=== PATIENT | male | born 1940 | race Caucasian/White ===

== ENCOUNTER → 2016-05-08 | Outpatient (CLI) | payer MEDICARE, BC ==
[~2016-05-08] MED LIST: AMARYL4 MG PO; CALCIUM 600 +1 EAC6 PO; CEFAZOLIN2 GM/1001 IV; DESYREL50 MG PO; DURICEF (NON-500 MG PO; ECOTRIN325 MG PO; FEOSOL325 MG PO; FISH OIL 1,0001 EAC3 PO; FLOMAX0.4 MG PO; FLORASTOR250 MG PO; GENTAMICIN IV; K-TAB 10MEQ10 MEQ PO; LASIX40 MG PO; LEVOTHROID (SY25 MCG PO; LIPITOR40 MG PO; MAG-OX-400(241400 MG PO; NORVASC5 MG PO; PANTOPRAZOLE SO40 MG PO; PRILOSEC20 MG PO; PRINIVIL (ZESTR20 MG PO; RESTORIL15 MG PO; RIFADIN, RIMAC300 MG PO; TRADJENTA5 MG PO; TRESIBA FL100 UNIT/1 SUB-Q; TRICOR145 MG PO; TYLENOL EXTRA500 MG PO; XARELTO15 MG PO; ZYLOPRIM300 MG PO
== END | disposition disaster alternative care site (69) ==
LOC: GNUT 12:47
DX: E11.22 Type 2 diabetes mellitus with diabetic chronic kidney disease (principal); N18.4 Chronic kidney disease, stage 4 (severe)

== ENCOUNTER 2016-06-22 16:00 | Inpatient (IN) | payer MEDICARE, BC ==
[~2016-06-22] VITALS: Ht 170.2 cm; Wt 92.8 kg
--- NOTE | ~2016-06-22 | CON ---
PATIENT'S NAME: SHIRA MCGOWAN [facility] AGE: 76 Y [address] ROOM: [place] [address] LOCATION: GICU ADMIT DATE: 06/22/2016 Consultation DISCHARGE DATE: FAMILY PHYSICIAN: PHYSICIAN, UNKNOWN ATTENDING PHYSICIAN: ESSIE OCHOA REFERRING PHYSICIAN: CECELIA MORRISON MD A consult for Dr. Ochoa, hospitalist. HISTORY OF PRESENT ILLNESS: This is a pleasant, 76-year-old gentleman referred for rehab eval, was admitted on 06/23 with feeling weak and fell while he was out camping with his grandson. He felt weak and fell. Past history of significance, history of the followin. Atrial fibrillation. 2. Coronary heart disease. 3. Status post CABG x4 vessels. 4. Sick sinus syndrome, status post pacemaker and on oral anticoagulants. 5. Diabetes, insulin dependent. 6. Status post aortic bovine valve replacement. He was noted also to be dragging his right leg. CT scan at outside hospital of the brain was negative for gross abnormalities. Denied shortness of breath. No chest pain. No edema. No chest discomfort. No UTIs and/or burning, and no increased frequency. Denied any edema of the leg. No trauma. ALLERGIES: NONE REPORTED. PHYSICAL EXAMINATION: GENERAL: Now he is alert, seems to be oriented x3. Follows instructions well. He is, at the present time, with high temperature and on oxygen per mask. VITAL SIGNS: Blood pressure is 94/76, temperature 103, pulse 60, and respiration rate 30. He is 5 feet 7 inches and weighs 92.7 kg. NEUROLOGIC: At this time, he is not in acute distress. He can comprehend and is able to express; however, with the mask, he is avoiding that. Can move all 4. Muscle strength 4- to 4 throughout. PATIENT'S NAME: SHIRA MCGOWAN [facility] AGE: 76 Y [address] ROOM: [place] [address] LOCATION: [facility] ADMIT DATE: 06/22/2016 Consultation DISCHARGE DATE: FAMILY PHYSICIAN: PHYSICIAN, UNKNOWN ATTENDING PHYSICIAN: ESSIE OCHOA Deep tendon reflexes 1+ throughout. He has good bowel control and has a Mar catheter. MEDICATIONS: He is on the following medications: 1. Insulin aspartate. 2. Glucagon. 3. Dextrose. 4. Glucose. 5. Tylenol. 6. NaCl 0.9%. 7. Mag-Ox. 8. Ferrous sulfate. 9. Allopurinol. 10. [place]-3. 11. Insulin detemir. 12. Protonix. 13. TriCor. 14. D3 vitamin. 15. Lipitor. 16. Flomax. 17. Rocephin. 18. Dopamine hydrochloride. 19. Lasix. 20. Lactated Ringer. 21. Seroquel. ASSESSMENT AND PLAN: At this time, we will start him on bedside PT and OT, and we will follow on him. When stable, we will be happy to reevaluate for rehab admission if he can tolerate it. At the present time, we are full. We will follow alongside with you. All the above was explained to him and his . She verbalized understanding and agreement. MD JACKLYN MCMAHON/modl /[id number] d: 06/23/16 1317 t: 06/24/16 0850, CONSULTATION REPORT
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
--- NOTE | ~2016-06-22 | CON ---
PATIENT'S NAME: SHIRA MCGOWAN [facility] AGE: 76 Y [address] ROOM: [place] [id number] LOCATION: GPCU ADMIT DATE: 06/22/2016 Consultation DISCHARGE DATE: FAMILY PHYSICIAN: Dave Ramos MD ATTENDING PHYSICIAN: ESSIE OCHOA DATE OF CONSULTATION: 06/28/2016 REFERRING PHYSICIAN: CECELIA MORRISON MD REQUESTING PHYSICIAN: Essie Ochoa M.D. REASON FOR CONSULTATION: Staphylococcus aureus bacteremia. SUBJECTIVE: Shira is a pleasant 76-year-old male, whom I was asked to see today in consultation by Dr. Essie Ochoa for further evaluation and recommendations for Staphylococcus aureus bacteremia. Shira was admitted on 06/22/2016 with acute onset of confusion and weakness. He was noted to be "not acting right" suddenly and was dragging his right leg. The initial CT was negative. He has a history of aortic valve replacement. Blood cultures were positive for Staphylococcus aureus, as noted below. He has been on oxacillin. PAST MEDICAL HISTORY: Previous valve replacement (the H&P states aortic, but the ECHO notes an MVR); insulin-dependent type 2 diabetes; dyslipidemia; hypertension; coronary artery disease; chronic kidney disease; atrial fibrillation, on anticoagulation; sick sinus syndrome - status post pacemaker; and chronic respiratory failure. CURRENT MEDICATIONS: See the MAR for complete listing. Antibiotics are as noted above. ALLERGIES: NONE NOTED. SOCIAL HISTORY: He has a distant history of smoking, but stopped in 1979. There is no history of alcohol or tobacco abuse. He is retired. FAMILY HISTORY: Significant for diabetes in his parents. REVIEW OF SYSTEMS: A complete review of systems was carried out and was remarkable as noted PATIENT'S NAME: SHIRA MCGOWAN [facility] AGE: 76 Y [address] ROOM: [address] [address] LOCATION: GPCU ADMIT DATE: 06/22/2016 Consultation DISCHARGE DATE: FAMILY PHYSICIAN: Dave Ramos MD ATTENDING PHYSICIAN: ESSIE OCHOA. OBJECTIVE: GENERAL: He appeared comfortable and was in no distress. He appeared alert and oriented. VITAL SIGNS: Temperature was 37.4, blood pressure 132/60, and pulse is 60. HEENT: Posterior pharynx clear. No adenopathy or thyromegaly. Cranial nerves are intact. NECK: Supple. CHEST: Clear to auscultation. CARDIOVASCULAR: Regular rhythm without S3 or S4. There is a 2/6 mid systolic murmur at the left upper sternal border without radiation. There is no jugular venous distention. ABDOMEN: Soft and nontender without hepatosplenomegaly or masses. EXTREMITIES: Unremarkable without synovitis or rashes. NEUROLOGIC: Strength somewhat globally diminished, no focal findings. PSYCHIATRIC: Behavior and affect appropriate. LABORATORY DATA: Creatinine 1.9. White count 9.5. Microbiology: Blood cultures x1 on 06/22/2016, positive for Staphylococcus aureus (resistant to penicillin). Blood cultures on 06/23/2016, positive 1/2 sets for Staphylococcus aureus. Urine culture on 06/23/2016, shows no growth. Blood cultures x2 on 06/26/2016, showed no growth to date. Clostridium difficile toxin assay on 06/27/2016 is negative. RADIOLOGY: Chest x-ray on 06/27/2016, shows pacemaker present and cardiac enlargement with mild vascular congestion. CT of the chest, abdomen, and pelvis on 06/23/2016 shows stranding in the fat next to both kidneys, cardiac enlargement, but no other acute findings. Echocardiogram on 06/23/2016 shows aortic stenosis and bioprosthetic mitral valve with no leaks. IMPRESSION: Staphylococcus aureus bacteremia with a presumed embolic stroke. Despite the negative transthoracic echo, I feel it is highly likely that he has prosthetic valve endocarditis and would treat accordingly. There are no obvious sources for infection. I note that he has chronic renal insufficiency and is on Coumadin, which will cause some issues with necessary antibiotics, but I feel we should be as aggressive as we can given the significant risk of relapse. Other diagnoses are stable, as noted above. His creatinine appears to have returned to its baseline of about 1.8 to 1.9. PATIENT'S NAME: SHIRA MCGOWAN [facility] AGE: 76 Y [address] ROOM: [id number] [place], [place] [address] LOCATION: GPCU ADMIT DATE: 06/22/2016 Consultation DISCHARGE DATE: FAMILY PHYSICIAN: Dave Ramos MD ATTENDING PHYSICIAN: ESSIE OCHOA PLAN: I would plan on 6 weeks of IV antibiotics. He will need a PICC line for this, which can be ordered at this time. I have ordered cefazolin 2 grams every 12 hours for 6 weeks, rifampin 300 mg 3 times daily for 6 weeks, and gentamicin 1 mg/kg daily for 2 weeks if possible. If he does develop an increasing creatinine, we may have to stop the gentamicin early. If there are any more positive blood cultures, I would strongly recommend consideration of a transesophageal echocardiogram, although I do not think it would change treatment at this point. He does not appear to be a good surgical candidate. We will be glad to see him in followup in the clinic in 2 weeks. Please call with any questions at . CARMEN BOBO MD JSS/modl /[id number] CC: Essie Ochoa MD d: 06/28/16 1817 t: 06/29/16 0754, CONSULTATION REPORT
--- NOTE | ~2016-06-22 | ECHO ---
Transthoracic Echocardiography Report (TTE) Demographics Patient Name SHIRA MCGOWAN Date of Study 06/23/2016 Patient Number [id number] Visit Number [id number] Date of 1940 Room Number G6[address] Gender Male Number Age 76 year(s) Referring Gabriela Mercer Metal Molder Davy Denson RVT Physician Physician Interpreting Elyse Daniels Account Executive Key Accounts Physician Supervising Ordering Gabriela Mercer MD/MLP Physician Nurse Stress Mushroom Cultivator Conclusions Contractility Score Summary At rest the following contractility abnormalities were noted: Hypokinesis of the Mid infero-septal, the Apical septal and the Basal infero-septal segments. Contractility of all other segments appeared normal. Summary Technically difficult exam. The estimated left ventricular ejection fraction is 55-60% with normal internal dimension and WM. Moderate concentric left ventricular hypertrophy. Mildly reduced right ventricular function. The right atrium is mildly dilated. Increased RA pressures. The bioprosthetic mitral valve functions normally with no perivalvular leak. Mean gradient is 3 mmHg. There is moderate aortic stenosis by the Continuity Equation. The peak velocity is 2.99 m/s, the mean gradient is 18 mmHg, and the valve area based on the continuity equation is 1.35 cm2, stroke volume index is 30 ml/m2. This could be low flow low gradient valvular . Mild tricuspid regurgitation by color Doppler. Trivial pulmonic valve regurgitation by color Doppler. Procedure Type of Study TTE procedure:2D Echocardiogram. Procedure Date Date: 06/23/2016 Start: 09:09 AM Study Location: Inpatient Portable Technical Quality: Poor visualization due to patient on ventilator. Indications:CVA. Additional Indications:New cardiomegaly Appropriate Use Criteria: 9 Patient Status: STAT HR: 60 bpm BP: 141/63 mmHg M-Mode/2D Measurements LV Diastolic Dimension: 4.51 cm LV Systolic Dimension: 2.75 cm LV Septum Diastolic: 1.91 cm LV PW Diastolic: 1.53 cm AO Root Dimension: 2.4 cm Cardiac Output: 3.66 l/min AV Cusp Separation: 0.8 cm RV Diastolic Dimension: 2.94 cm LVOT: 2.1 cm LVOT VTI: 17.6 cm RV Base: 3.35 cm LV Stroke volume: 60.93 ml RV Length: 6.81 cm TAPSE: 1.29 cm TDI-S': 15.8 cm/s Doppler Measurements AV Peak Velocity: 2.99 m/s AV Peak Gradient: 35.76 mmHg MV Mean Gradient: 3 mmHg LVOT Peak Velocity: 1.39 m/s PV Peak Gradient: 9.61 mmHg TR Velocity:1.84 m/s Estimated PASP: 33.54 mmHg TR Gradient:13.54 mmHg Estimated RAP:20 mmHg Estimated RVSP: 34 mmHg E' Septal Velocity: 0.04 m/s E' Lateral Velocity: 0.05 m/s Findings Left Ventricle Moderate concentric left ventricular hypertrophy with normal internal dimension,EF and WM. Right Ventricle Mildly reduced right ventricular function. Left Atrium LA is mildly dilated. Right Atrium The right atrium is mildly dilated. IVC measures 2.69 cm with no inspiratory collapse. Mitral Valve The bioprosthetic mitral valve functions normally with no perivalvular leak. Mean gradient is 3 mmHg. Aortic Valve There is moderate aortic stenosis by the Continuity Equation. The peak velocity is 2.99 m/s, the mean gradient is 18 mmHg, and the valve area based on the continuity equation is 1.35 cm2, stroke volume index is 30 ml/m2. Tricuspid Valve Mild tricuspid regurgitation by color Doppler. Pulmonic Valve Trivial pulmonic valve regurgitation by color Doppler. Pericardial Effusion No evidence of pericardial effusion. Miscellaneous Visualized portions of the aortic root and ascending aorta appear normal in size. Pleural Effusion No evidence of pleural effusion. Contractility Score LV regional wall motion:(0-Non visualized 1-Normal 2-Hypokinesis 3-Akinesis 4-Dyskinesis 5-Aneurysm) Signature dtt: Frances Pappas dtd: 06/23/16 0909 Physician Self Edit
--- NOTE | ~2016-06-22 | DS ---
PATIENT'S NAME: ROSLYN SHIRA [facility] AGE: 76 Y [address] ROOM: [address] [address] LOCATION: GPCU ADMIT DATE: 06/22/2016 Discharge Summary DISCHARGE DATE: 07/04/2016 FAMILY PHYSICIAN: Dave Ramos MD ATTENDING PHYSICIAN: Alexandra Ochoa PRIMARY DIAGNOSES: 1. Methicillin-sensitive staphylococcus aureus bacteremia. 2. Prosthetic valve endocarditis. 3. Acute encephalopathy secondary to infection. 4. Acute kidney injury. 5. Chronic kidney disease, stage 3. 6. Chronic atrial fibrillation. 7. Diabetes mellitus type 2, insulin dependent. 8. Coronary artery disease. 9. Pulmonary nodule, six-month CT followup recommended. 10. Obstructive sleep apnea. 11. Essential hypertension. 12. Sick sinus syndrome, status post permanent pacemaker implant. OPERATIONS AND PROCEDURES: Echocardiogram was obtained on 06/23/2016 demonstrating an ejection fraction of 55 to 60%, moderate aortic stenosis. CT scan of the chest, abdomen, and pelvis was obtained on 06/23/2016 demonstrating cardiac enlargement, cholelithiasis, and a small noncalcified nodule in the right middle lobe, too small for definite characterization, six- month CT followup recommended. Abdominal ultrasound obtained on 06/23/2016 demonstrated no renal collecting system abnormalities. HISTORY OF PRESENTING ILLNESS/REASON FOR ADMISSION: Please refer to the H and P dictated on 06/22/[address] Ochoa. HOSPITAL COURSE: The patient was admitted to hospital as noted above with a presumptive diagnosis of acute encephalopathy and presumed stroke, and it became evident that he was encephalopathic from infectious causes versus toxic metabolic etiologies. There was no clinical evidence for stroke. Blood cultures obtained in an outside facility did show MSSA. He was treated with broad-spectrum antibiotic therapy and Infectious Disease was consulted. He had initially been treated with meropenem, linezolid, and ceftriaxone. This was switched to oxacillin, but then subsequently recommended to be changed to a three-drug regimen including IV cefazolin, gentamicin, and rifampin for a total of six weeks. His clinical condition improved relatively quickly. Renal function was significantly impaired at the point of hospitalization but also improved with PATIENT'S NAME: ROSLYN [facility] AGE: 76 Y [address] ROOM: [address] [address] LOCATION: GPCU ADMIT DATE: 06/22/2016 Discharge Summary DISCHARGE DATE: 07/04/2016 FAMILY PHYSICIAN: Dave Ramos MD ATTENDING PHYSICIAN: Alexandra Ochoa careful IV fluid hydration therapy and medication adjustment. His blood sugars were monitored and managed with sliding scale insulin while he was inpatient and remained well controlled. His clinical condition continued to improve and by the end of the 12th day of his hospital stay, he was felt to be stable enough for discharge home with plans for long-term intravenous antibiotic therapy on an outpatient basis as well as outpatient followup with primary care provider Dr. Ramos and an outpatient followup with Infectious Disease. DISCHARGE INSTRUCTIONS: DIET: Regular as tolerated. ACTIVITY: As tolerated. MEDICATIONS: 1. Cefazolin 2 g IV b.i.d. through 08/06/2016. 2. Gentamicin 80 mg IV q.24 hours through 08/06/2016. 3. Allopurinol 300 mg p.o. daily. 4. Atorvastatin 40 mg p.o. daily. 5. Tricor 145 p.o. daily. 6. Iron 325 mg p.o. daily. 7. Lasix 40 mg p.o. daily. 8. Tresiba insulin 16 units subcu q.h.s. 9. Lisinopril 20 mg p.o. daily. 10. Mag oxide 400 mg p.o. daily. 11. Omeprazole 20 mg p.o. b.i.d. 12. Rifampin 300 mg p.o. q.8 hours through 08/09/2016. 13. Xarelto 15 mg p.o. daily. 14. Florastor 250 mg p.o. b.i.d. 15. Flomax 0.4 mg p.o. daily. 16. Acetaminophen 1000 mg p.o. t.i.d. p.r.n. 17. Calcium with vitamin D 600 mg p.o. daily. 18. Trazodone 50 mg p.o. q.h.s. p.r.n. insomnia. 19. [place]-3 fatty acids 1000 mg p.o. daily. 20. Tradjenta 5 mg p.o. daily. 21. Glimepiride 4 mg p.o. daily. FOLLOWUP: He will follow up with Infectious Disease Clinic in 2 weeks. He will have outpatient followup with Dr. Ramos in 3 to 5 days. CONDITION ON DISCHARGE: Fair. PATIENT'S NAME: SHIRA MCGOWAN [facility] AGE: 76 Y [address] ROOM: [id number] [place] [address] [facility] ADMIT DATE: 06/22/2016 Discharge Summary DISCHARGE DATE: 07/04/2016 FAMILY PHYSICIAN: Dave Ramos MD ATTENDING PHYSICIAN: Alexandra Ochoa TIME SPENT: Total time spent on discharge process 60 minutes. LUIS ALFREDO J MD HUNTER SOLIZ/blanca /[id number] d: 07/05/16 0417 t: 07/06/16 1726, DISCHARGE SUMMARY
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
--- NOTE | ~2016-06-22 | OR ---
PATIENT'S NAME: SHIRA MCGOWAN [facility] AGE: 76 Y [address] ROOM: [place] [address] LOCATION: GPCU ADMIT DATE: 06/22/2016 OR/Procedure Report DISCHARGE DATE: FAMILY PHYSICIAN: Dave Ramos MD ATTENDING PHYSICIAN: ESSIE OCHOA SURGEON: Essie Ochoa MD CORRECTIONAL THERAPY TEACHER: DATE OF PROCEDURE: 06/23/2016 PROCEDURE: Right central vein catheterization. INDICATION: Sepsis, need for IV fluids and vasopressors. DESCRIPTION OF PROCEDURE: Procedure was explained to the patient as well as family. Risks of infection, bleeding, as well as pneumothorax were discussed. Finally, the patient wished to proceed with the procedure. Time-out was taken. Right IJ as well as left IJ were examined using ultrasonography. Right IJ was selected for catheterization. The patient was prepped in a sterile fashion. Anesthetic lidocaine 1% was used to achieve local anesthesia. Using ultrasonography, right IJ was identified and trocar needle was entered into it with aspiration of dark blood oozing out of the needle. Guidewire was advanced. Needle was removed. Confirmation of the guidewire presence in the IJ was confirmed using ultrasonography and images were saved. Dilatation was achieved with a dilator. . Using guidewire, central line was threaded over the guidewire and guidewire was retrieved. The line was secured with sutures and dressed. No immediate complication noted. Chest x-ray had been ordered. MD CHOLO VELIZ/albertol /[id number] d: 06/23/16 2314 t: 07/10/16 1503, OPERATIVE SUMMARY
[2016-06-22] MEDS ORDERED: TYLENOL EXTRA500 MG PO (17:54)
[2016-06-22] MEDS ORDERED: CALCIUM 600 +1 EAC6 PO (17:55)
[2016-06-22] MEDS ORDERED: ZYLOPRIM300 MG PO (18:14)
--- NOTE | 2016-06-22 18:14 | NUR ---
Pt is 76 y/o male admit for acute confusion/poss CVA for hospitalist. Pt alert and oriented to person and place. No allergies. Resides at home with his . Family at bedside. Pt was eating lunch with his grandson and got up from the table and fell. He was confused and unsteady on his feet with slightly slurred,garbled speech. Hx htn,hypercholest,pacemaker,valve repair,CABG, arthritis,gerd,gout,renal insufficiency/disease,urgency/frequency,colon CA with resection,DM.
[2016-06-22] MEDS ORDERED: LIPITOR40 MG PO (18:15)
[2016-06-22] MEDS ORDERED: TRICOR145 MG PO (18:15)
[2016-06-22] MEDS ORDERED: FISH OIL 1,0001 EAC3 PO (18:16)
[2016-06-22] MEDS ORDERED: FEOSOL325 MG PO (18:16)
[2016-06-22] MEDS ORDERED: MAG-OX-400(241400 MG PO (18:17)
[2016-06-22] MEDS ORDERED: LASIX40 MG PO (18:17)
[2016-06-22] MEDS ORDERED: PRILOSEC20 MG PO (18:18)
[2016-06-22] MEDS ORDERED: XARELTO15 MG PO (18:18)
[2016-06-22] MEDS ORDERED: TRADJENTA5 MG PO (18:21)
[2016-06-22] MEDS ORDERED: AMARYL4 MG PO (18:25)
[2016-06-22] MEDS ORDERED: TRESIBA FL100 UNIT/1 SUB-Q (18:26)
[2016-06-23 03:34] LABS: HEMATOCRIT 32.7 % (37.0-53.0); HEMOGLOBIN 10.9 g/dL (11.0-16.0); MCH 30.8 pg (27.0-34.0); MCHC 33.3 gm/dL (32.0-36.5); MCV 92.4 fl (83.0-98.0); MPV 10.6 fl (9.4-12.4); PLATELET COUNT 196 K/uL (150-450); RBC 3.54 M/uL (3.50-5.50); RDW-CV 14.6 % (11.9-14.6)
[2016-06-23 03:37] LABS: WBC 16.3 K/uL (4.0-11.0)
[2016-06-23 03:53] LABS: ANION GAP 16.6 (10.0-19.0); CREATININE 3.3 mg/dL (0.6-1.3); POTASSIUM 3.6 mMol/L (3.7-5.1)
[2016-06-23 05:25] LABS: ABSOLUTE NEUTROPHIL CT (ANC) 15.7 K/uL (1.4-9.0); BANDED NEUTROPHIL # 5.5 K/uL (0.0-0.1); BANDED NEUTROPHILS % 34 %; LYMPHOCYTE # 0.3 K/uL (0.8-4.0); LYMPHOCYTE % 2 %; MONOCYTE # 0.3 K/uL (0.0-1.0); SEGMENTED NEUTROPHIL # 10.1 K/uL (1.4-9.0); SEGMENTED NEUTROPHIL % 62 %
--- NOTE | 2016-06-23 07:02 | NUR ---
Significant Event: Patient A/O x 3. Impulsive at times. Moves all extremities spontaneously and to command with equal strength throughout. Denies N/T. No visual issues. Wears glasses. Has dentures. Bilateral hearing aids. Lungs clear and dim throughout on 2L or CPAP while sleeping this shift. Bowel sounds active. Incontinent at times. Oliguria. No pain this shift. Hypotensive issues, fluid boluses given. PIV to left fa SL. SCDs intact. SS=1 for slight mouth droop. Right eye droopy. Follow up: Chest xray done this shift.
--- NOTE | 2016-06-23 08:38 | NUR ---
CONSULT RECEIVED PER ROUTINE STROKE ORDERS. WILL PROVIDE DIET EDUCATION APPROPRIATE PRIOR TO DISCHARGE.
[2016-06-23 08:51] LABS: PCO2 27 mmHg (35-45); PO2 57 mmHg (80-90)
[2016-06-23 10:09] LABS: BILIRUBIN URINE NEGATIVE (NEGATIVE); BLOOD URINE 250 /UL (NEGATIVE); COLOR URINE YELLOW (YELLOW); GLUCOSE URINE NEGATIVE (NEGATIVE); KETONE URINE 5 mg/dL (NEGATIVE); LEUKOCYTES URINE 25 /UL (NEGATIVE); NITRITE URINE NEGATIVE (NEGATIVE); PROTEIN URINE 30 mg/dL (NEGATIVE); SPEC GRAVITY URINE 1.015 (1.003-1.035); TURBIDITY URINE CLEAR (CLEAR); UROBILINOGEN URINE 1 mg/dL (NORMAL)
[2016-06-23 10:18] LABS: AMORPHOUS URINE 1+ (NEGATIVE); BACTERIA URINE RARE (NEGATIVE); RBC URINE 20-50 #/HPF (NEGATIVE); WBC URINE 0-2 #/HPF (NEGATIVE)
[2016-06-23 10:23] LABS: INR - (THERAPEUTIC) 1.24 (0.92-1.07)
--- NOTE | 2016-06-23 11:16 | NUR ---
Significant Event: PT restless, confused, garbled words at times. Labored breathing, O2 increased to 5L and then CPAP applied. BP in the 200 then down to 140 SBP. Temp 103.1. MD notified of temp, labored breathing and increased O2 demands. IV patent to L)wrist. Lasix 40mg IV given x1. Rocephin 1 GM IV given x1. Fluid bolus NS 500ml given x1. Mar placed. MD came to see PT and initiated sepsis orders and ordered to transfer to ICU. PT transfered at 1015. Follow up:
--- NOTE | 2016-06-23 13:54 | NUR ---
Patient transferred to ICU this morning. Reviewed chart. Will continue to follow.
--- NOTE | 2016-06-23 17:08 | NUR ---
Significant Event: Arrived to ICU at 1015. Mild hypotension, disorientation, and need for CPAP on arrival. 2L NS boluses given by 1215. Central line placed. Hemodynamically stable and neurologically intact this afternoon. On 4L O2/NC. Up to chair with 1PA. Family present most of the day. Follow up: continue
--- NOTE | 2016-06-24 05:43 | NUR ---
Significant Event: Pt is alert and oriented x3. Pupils are equal and reactive. Moves all extremities spontaneously and to command. On Cpap at night and 2-4L O2 during the day. Ambulates with a 1 assist. Blood pressures have been stable this shift, Levo was not started. Up to the toilet, 1 BM this shift. Mar cath in place with good urine output. [address], IJ triple lumen in place. Follow up: Possible change of status today.
[2016-06-24 11:42] LABS: HEMATOCRIT 32.4 % (37.0-53.0); HEMOGLOBIN 10.4 g/dL (11.0-16.0); MCH 30.2 pg (27.0-34.0); MCHC 32.1 gm/dL (32.0-36.5); MCV 94.2 fl (83.0-98.0); MPV 11.3 fl (9.4-12.4); RBC 3.44 M/uL (3.50-5.50); WBC 11.6 K/uL (4.0-11.0)
[2016-06-24 11:55] LABS: ALBUMIN 2.4 gm/dL (3.5-5.0); ANION GAP 15.8 (10.0-19.0); CALCIUM 7.9 mg/dL (8.5-10.5); CREATININE 2.9 mg/dL (0.6-1.3); POTASSIUM 3.8 mMol/L (3.7-5.1)
[2016-06-24 11:57] LABS: PLATELET COUNT 140 K/uL (150-450)
[2016-06-24 12:23] LABS: ABSOLUTE NEUTROPHIL CT (ANC) 10.7 K/uL (1.4-9.0); BANDED NEUTROPHIL # 3.7 K/uL (0.0-0.1); BANDED NEUTROPHILS % 32 %; LYMPHOCYTE # 0.3 K/uL (0.8-4.0); LYMPHOCYTE % 3 %; MONOCYTE # 0.6 K/uL (0.0-1.0); SEGMENTED NEUTROPHIL % 60 %
--- NOTE | 2016-06-24 18:04 | NUR ---
Significant Event: CARDIO: SBP 140s-150s. Temp 99.1. RESP: Room air. NEURO: Alert and oriented x 3. ACTIVITY: Ambulated in bills.
--- NOTE | 2016-06-25 05:38 | NUR ---
PT'S NEURO STATUS REMAINS WNL. PACED AT 60 BPM, OCCASIONALLY SLIGHLY HIGHER WITH ACTIVITY. NORMO-HYPERTENSIVE. TMAX 99.4. REMAINS ON RA DURING DAY, DID NOT WANT TO WEAR CPAP DUE TO NO HUMIDITY LAST NIGHT SO PLACED ON 2LNC TO PREVENT DESATURATIONS. ORDER FOR CEPACHOL OBTAINED FOR DRY/SORE THROAT. TOLERATING DIET WELL, BM X1 THIS SHIFT. UOP ADEQUATE (12 HR TOTAL 820 ML). ROSEMARY VIVAS RN
[2016-06-25 05:45] LABS: BASOPHIL % 0.1 %; EOSINOPHIL % 0.1 %; HEMATOCRIT 32.9 % (37.0-53.0); HEMOGLOBIN 10.6 g/dL (11.0-16.0); IMMATURE GRANULOCYTE # 0.1 K/uL (0.0-0.3); IMMATURE GRANULOCYTE % 1.1 %; LYMPHOCYTE # 0.6 K/uL (0.8-4.0); LYMPHOCYTE % 5.5 %; MCH 29.8 pg (27.0-34.0); MCHC 32.2 gm/dL (32.0-36.5); MCV 92.4 fl (83.0-98.0); MONOCYTE # 0.8 K/uL (0.0-1.0); MONOCYTE % 7.5 %; MPV 11.3 fl (9.4-12.4); NEUTROPHIL # (ANC) 8.9 K/uL (1.4-9.0); NEUTROPHIL % 85.7 %; NRBC % 0 /100WBC (0-0.00); PLATELET COUNT 148 K/uL (150-450); RBC 3.56 M/uL (3.50-5.50); RDW-CV 14.9 % (11.9-14.6); WBC 10.4 K/uL (4.0-11.0)
[2016-06-25 06:02] LABS: ALBUMIN 2.4 gm/dL (3.5-5.0); ANION GAP 13.7 (10.0-19.0); CREATININE 2.5 mg/dL (0.6-1.3); PHOSPHORUS 2.2 mg/dL (2.5-4.9); POTASSIUM 3.7 mMol/L (3.7-5.1)
--- NOTE | 2016-06-25 10:07 | NUR ---
PATIENT ALERT, ORIENTED X3. OPENS EYES SPONTANEOUSLY AND TO VOICE. PUPILS EQUAL AND REACTIVE . NO FACIAL ASYMMETRY. SPEECH IS MUMMBLED, APPROPRIATE, DENIES ANY NUMBNESS, TINGLING, OR PAIN. MAKES ALL NEEDS KNOWN. PATIENT MOVES ALL 4 EXTREMITIES SPONTANEOUSLY AND TO COMMANDS, EQUAL STRENGTH THROUGHOUT. AMBULATED IN HALLWAY X2 THIS AM, GAITBELT, WALKER, AND STAND BY ASSISTENCE. COOPERATIVE WITH ALL CARES. PATIETN HAS BEEN IN PACED RHYTHM, HR 60-70S. PULSES PALPABLE THROUGHOUT. AFEBRILE. BP STABLE, SBP 140-150S. MAP>65. NS INFUCING THROUGHOUT L) FOREARM AT 150ML/HR. CURRENTLY RECIEVING ZYVOX AT 150ML/HR. NO COMPLICATIONS WITH IV. PATIENT IS ON ROOM AIR, SATS MID TO UPPER 90S. SOUGH NON PRODUCTIVE. BOWEL SOUNDS PRESENT, 1 SMALL BM TODAY, LOOSE. VOIDS PER URINAL, 100 ML OUTPUT. NO NEW SKIN ISSUES NOTED. SHOWER COMPLETED THIS AM. 2 PIV, NO COMPLICATIONS. BEDSIDE REPORT COMPLETED WITH YANNICK ELKINSU RN. ALL BELONGINGS SENT WITH PATIENT. FAMILY NOTIFIED OF TRANSFER FOLLOW UP: CONTINUE TO MONITOR, ASK IF NECESSARY TO CONTINUE NS AT 150ML/HR?
--- NOTE | 2016-06-25 13:36 | NUR ---
Attempted to visit pt 3 times today. Once in ER and pt stated he just walked to shower. Twice in PCU, pt states lunch is coming initially, then an hour later, lunch was there upon last visit. Will resume PT tomorrow.
--- NOTE | 2016-06-25 19:06 | NUR ---
PT OUT OF ICU THIS AM 1030. AT TIME OF TRANSFER PT IS A/O PINK WARM AND DRY. TALKATIVE. IN ROOM, IV'S TO LT WRIST AND RT HAND FLUSHING AND RUNNING WELL. NS AT 150MLS TO LT WRIST IV. LUNGS ARE CLEAR AND DIMINSHED IN THE BASES. ABDOMEN IS SOFT AND NONTENDER WITH PRESENT BOWEL SOUNDS. PULSES ARE STRONG. HE HAS 1-2 + hand edmea, FEET LOOK PRETTY GOOD AND PT IS GOOD ABOUT TRYING TO KEEP THEM UP. PT DOES GET AUDIBLY WHEEZY WHEN UP IN ROOM TO BR , BBUT RECOVERS QUICKLY. SATS REMAIN UNCHANGED 91-94% ON ROOM AIR EVEN FTER WALKING AND SOUNDING WHEEZY.
--- NOTE | 2016-06-26 05:18 | NUR ---
Significant Event: A/O X 3 COOPERATIVE WITH CARES. AMBULATES 1 ASSIST WITH WALKER. PACED HR AROUND 60, SBP 110 TO 150'S. REFUSED HOSPITAL CPAP SO PUT 2L 02 HS. TO BRING HOME CPAP TODAY. LUNGS WERE VERY COARSE BUT HAVE IMPROVED TO CLEAR/DIMINISHED CRACKLES ON LEFT LOWER LOBE. THEN HE DEVELOPED VERY PROMINENT UPPER AIRWAY EXPIRATORY WHEEZES. DID CHEST X-RAY, D/C'D IV FLUIDS AND GAVE 20 MG IV LASIX AND STARTED DUONEB Q6 HOUR PRN. BLOOD SUGAR THIS AM 60, TREATED IT X 2 WITH LAST READING 94. COUGHING IS STARTING TO BECOME PRODUCTIVE, STARTED CLARITIN AND FLONASE. DENIED PAIN, NO PAIN MEDS GIVEN. RESTED WELL AT TIMES WITH NO COMPLAINTS. Follow up:
[2016-06-26 05:44] LABS: ALBUMIN 2.2 gm/dL (3.5-5.0); ANION GAP 14.4 (10.0-19.0); CALCIUM 7.8 mg/dL (8.5-10.5); CREATININE 2.1 mg/dL (0.6-1.3); PHOSPHORUS 3.4 mg/dL (2.5-4.9); POTASSIUM 3.4 mMol/L (3.7-5.1)
--- NOTE | 2016-06-26 08:18 | NUR ---
CONSULT FOR CVA NOTED BUT BRAIN SCAN NEGATIVE. WILL ASSIST NEEDED.
--- NOTE | 2016-06-26 16:41 | NUR ---
Introduced self and role of care management to patient and . They live in [place]. He states that he is able to do all his own ADL's. His states that she does assist as needed. We discussed his discharge plans. They did ask about the possible need of a walker. I explained that I would leave a script on his chart for the doctor to sign. They plan on hm returning home on discharge. They deny any other needs at this time. Will continue to follow.
--- NOTE | 2016-06-27 04:32 | NUR ---
Significant Event: PATIENT IS A/O X3. VSS. HR 50-60'S IN PACED RHYTHM. AFEBRILE. 02 SATS IN LOW TO MID 90'S STARTED ON 2L 02 PER NC AT NIGHT. NO C/O PAIN. LUNGS WHEEZY AND SLIGHTLY COARSE WITH CRACKLES IN BASES. 02 INITIATED. 20MG IV LASIX GIVEN X1. CXR ORDERED FOR AM. PRN BREATHING TREATMENTS GIVEN. UP WITH 1A WITH WALKER/GB. BOWELS ACTIVE. C/O LOOSE STOOLS. ORDER RECIEVED TO TEST STOOL FOR CDIFF. VOIDS PER URINAL. IV TO RIGHT AND LEFT FOREARMS BOTH SL. ABREVA ORDERED FOR COLD SORE TO LEFT NOSTIRL. ON Q6H ACCUCHECKS. Follow up: CONTINUE TO MONITOR PER PLAN OF CARE.
[2016-06-27 05:03] LABS: BASOPHIL % 0.3 %; EOSINOPHIL # 0.1 K/uL (0.0-0.5); HEMATOCRIT 30.8 % (37.0-53.0); HEMOGLOBIN 9.9 g/dL (11.0-16.0); IMMATURE GRANULOCYTE # 0.1 K/uL (0.0-0.3); IMMATURE GRANULOCYTE % 1.5 %; LYMPHOCYTE # 0.7 K/uL (0.8-4.0); LYMPHOCYTE % 7.6 %; MCH 29.7 pg (27.0-34.0); MCHC 32.1 gm/dL (32.0-36.5); MCV 92.5 fl (83.0-98.0); MONOCYTE # 1.2 K/uL (0.0-1.0); MONOCYTE % 12.8 %; MPV 11.3 fl (9.4-12.4); NEUTROPHIL # (ANC) 7.3 K/uL (1.4-9.0); NEUTROPHIL % 76.8 %; NRBC % 0 /100WBC (0-0.00); PLATELET COUNT 150 K/uL (150-450); RBC 3.33 M/uL (3.50-5.50); WBC 9.6 K/uL (4.0-11.0)
[2016-06-27 05:22] LABS: ALBUMIN 2.2 gm/dL (3.5-5.0); ANION GAP 11.8 (10.0-19.0); CREATININE 1.9 mg/dL (0.6-1.3); PHOSPHORUS 2.2 mg/dL (2.5-4.9); POTASSIUM 3.8 mMol/L (3.7-5.1)
--- NOTE | 2016-06-27 11:31 | NUR ---
A-SCREENED D/T LOS HT: 67 IN. WT: 101.3 KG (STANDING SCALE). BMI: 35.0 LABS REVIEWED; BUN 30 AND COPER HAND 1.9; TRENDING DOWN FROM ADMIT. ALB 2.2 MEDS: LASIX, XARELTO, OXACILLIN, PROTONIX, NOVOLOG (MILD SS) DIET RX: CARDIAC. PO INTAKE 75-100% FOR THE MOST PART. EST NUTR NEEDS: 1805-8280 KCALS (15-20 KCALS/KG) 101-134 GM PROTEIN (1.5-2.0 GM/KG IBW) 1 ML FLUID/KCAL D-NOT AT NUTRITION RISK; NO NUTRITION DX IDENTIFIED I-CONTINUE W/CURRENT DIET RX M/E-WILL ASSIST NEEDED
--- NOTE | 2016-06-27 18:26 | NUR ---
PATIENT UP TO CHAIR AND BR W/ 1 ASSIST. SATS 93% ON RA. C-DIFF TEST NEG. IMMODIUM GIVEN X1. INCREASED LASIX AND RAMIPRIL. ID CONSULTED. CONTINUED ANTIBIOTICS.
--- NOTE | 2016-06-28 04:23 | NUR ---
Significant Event: PATIENT IS A/O X3 BUT FORGETFUL AT TIMES. VSS. HR 60-70'S IN PACED RHYTHM. SBP 130-180'S. AFEBRILE. 02 SATS IN LOW TO MID 90'S ON 2L 02 PER NC AT NIGHT AND RA DURING DAY. LUNGS VARRIED BUT MOSTLY WHEEZES IN UPPER LOBES AND CLEAR/DIM IN BASES. BREATHING TX X1 BUT REFUSED OTHERWISE WHEN ASKED PATIENT. CONTINUES TO HAVE NON-PRODUCTIVE COUGH. UP WITH 1A WITH WALKER/GB. BOWELS ACTIVE. CONTINUES TO HAVE LOOSE STOOLS. VOIDS PER URINAL. IV TO LEFT FOREARM AND RIGHT FOREARM BOTH SL. ON Q6H ACCUCHECKS. GAVE 12.5MG LIQUID BENADRYL X1 AND 50MG TRAZADONE X1 TO HELP SLEEP. Follow up: CONTINUE TO MONITOR PER PLAN OF CARE.
--- NOTE | 2016-06-28 19:16 | NUR ---
Significant Event:Patient had antibiotics changed by KEYONNA oquendo Will get a PICC in the morning at 0900. On room air throughout day. Put on Fluid Restriction of 1500 ml/24 hours. Continue Lasix Follow up:PICC in am
--- NOTE | 2016-06-29 04:32 | NUR ---
Patient A/Ox3 can be forgetful. VSS on RA. Up one assist with walker/gaitbelt. Pain med given x1 for generalized pain. IV bilateral arms saline locked. Lungs clear/diminished. Bowel sounds present, 1 small BM this shift. PICC placement today for prison antibotics. Possible home today. Has several sores on mouth and under nose.
[2016-06-29 05:28] LABS: ALBUMIN 2.1 gm/dL (3.5-5.0); ANION GAP 14.1 (10.0-19.0); CREATININE 1.9 mg/dL (0.6-1.3); PHOSPHORUS 2.6 mg/dL (2.5-4.9); POTASSIUM 3.1 mMol/L (3.7-5.1)
--- NOTE | 2016-06-29 12:33 | NUR ---
Called and spoke with patients Ashley this morning about his superintendent container terminal antibiotic needs. I explained that Naveen had 3 options. He could do home infusion, outpatient infusion in [place] or go to the swingbed in [place]. We both agreed the swingbed would not be an option for Naveen as he would not want to be in the hosptial that long. I did explain that with home infusion would consist of having a home health nurse come out and teach them how to use the infusion equipment and take care of the powerport line. It would then be up to her to do the 3 infusions everyday. The outpatient option would consist of her taking him to the [facility] twice daily for six weeks and the antibiotic would be infused at the hosptial. She wants to speak with Naveen and her son to determine what will be the best choice. She plans on being here on Sunday afternoon. Will touchbase with her on Sunday.
--- NOTE | 2016-06-29 16:17 | NUR ---
Significant Event:Patient had a power line placed for terminal clerk antibiotics. It is in left, has a small ooze. Patient has taken tylenol ES for generalized pain from arthritis. Took 40 mEq KCl PO today. Had one stool- was loose. Follow up:Will probably stay till next Sunday to monitor renal function with antibiotics.
--- NOTE | 2016-06-29 16:20 | NUR ---
D:Patient left for Radiology per bed at 1045. Returned to rom at 1155. Had power line to left chest. Having small of bloody oozing, Ina WAKLER changed dressing and placed some gauze under tegaderm. Has had small amount serosang drainage since dressing change.
[2016-06-30 03:45] LABS: ALBUMIN 2.1 gm/dL (3.5-5.0); ANION GAP 12.3 (10.0-19.0); CALCIUM 8.2 mg/dL (8.5-10.5); CREATININE 1.8 mg/dL (0.6-1.3); PHOSPHORUS 2.5 mg/dL (2.5-4.9); POTASSIUM 3.3 mMol/L (3.7-5.1)
--- NOTE | 2016-06-30 04:20 | NUR ---
Patient A/Ox3. VSS on RA. Up standby assist w/walker. Lungs clear. Bowel sounds present, BM last night. Power [place] to Rt chest saline locked. Tylenol at HS for generalized pain. Will keep over weekend to monitor renal function.
--- NOTE | 2016-06-30 11:00 | NUR ---
Spoke with Whitney at home infusion. She gave me a preliminary cost for home infusion. Cefazolin 2 Gm IV BID $50 per week, Gentamycin $70 per week totaling $115 per week roughly $700 for six weeks. If patients decides on home infusion will use [facility] at home so supply costs are waived. Will touch base with patients when she is here this afternoon.
--- NOTE | 2016-06-30 11:30 | NUR ---
Spoke with Whitney at [facility] home infusion. She gave me a preliminary cost for home infusion. Cefazolin 2 Gm IV BID $50 per week, Gentamycin $70 per week totaling $115 per week roughly $700 for six weeks. If patients decides on home infusion will use [facility] at home so supply costs are waived. Will touch base with patients when she is here this afternoon.
--- NOTE | 2016-06-30 15:23 | NUR ---
Significant event: Alert, oriented x3. HR 60's, afebrile, RR 20-32, RA O2 sats> 90%, BP's 160-170's, 3rd assessment was 148/67. Tylenol given for joint pain. Lungs clear/diminished. Bowel sounds positive. IV dressing changed today. Will be replacing k+. Now have PRN medication order for SBP > 180. Follow Up: Monitoring renal status.
--- NOTE | 2016-06-30 18:12 | NUR ---
I spoke with patients this afternoon. We discussed discharge options again for his IV antibiotics. She states that she and Naveen have discussed it and they would prefer to do outpatient therapy at the [facility]. I explained that I would set that up on the day he is discharge. She verbalized understanding.
[2016-07-01 03:45] LABS: ALBUMIN 2.1 gm/dL (3.5-5.0); ANION GAP 11.1 (10.0-19.0); CALCIUM 8.4 mg/dL (8.5-10.5); CREATININE 1.8 mg/dL (0.6-1.3); PHOSPHORUS 2.3 mg/dL (2.5-4.9); POTASSIUM 3.1 mMol/L (3.7-5.1)
--- NOTE | 2016-07-01 04:26 | NUR ---
Patient A/Ox3. VSS on RA. Stand and pivot to transfer. PT/OT working with him. IV saline locked. Ultram x2 for back and foot pain. Waiting for placement.
--- NOTE | 2016-07-01 16:15 | NUR ---
Significant event: A&Ox3. HR 60, SBP: 174,161,140. Afebrile. RA, lungs clear/diminished. BS present, had BM today. R)subclavian power line patent, good blood return. Dodson ordered for arthritic pain, last given 2 tabs at 1550. Follow Up: Monitoring renal status over the weekend, then plan for either home infusion or placement.
--- NOTE | 2016-07-02 03:50 | NUR ---
Significant Event: PATIENT IS A/O X3 BUT FORGETFUL AT TIMES. VSS. HR 50-60'S. SBP 150-170'S. AFEBRILE. 02 SATS IN MID 90'S ON RA. C/O GENERALIZED JOINT PAIN. 2 TABS NORCO GIVEN X1 WITH SOME RELIEF. LUNGS CLEAR TO CLEAR/DIM WITH WHEEZES NOTED ON LAST ASSESSMENT. PATIENT REFUSED PRN BREATHING TREATMENT. UP WITH 1A WITH WALKER/GB. BOWELS ACTIVE. CONTINUES TO HAVE LOOSE STOOLS. VOIDS PER URINAL. RIGHT CHEST POWER LINE SL. ON ACHS ACCUCHECKS. Follow up: CONTINUE TO MONITOR PER PLAN OF CARE.
[2016-07-02 07:36] LABS: BASOPHIL % 0.3 %; EOSINOPHIL # 0.2 K/uL (0.0-0.5); EOSINOPHIL % 2.2 %; HEMOGLOBIN 10.6 g/dL (11.0-16.0); IMMATURE GRANULOCYTE # 0.1 K/uL (0.0-0.3); IMMATURE GRANULOCYTE % 1.3 %; LYMPHOCYTE % 9.6 %; MCH 29.6 pg (27.0-34.0); MCHC 32.1 gm/dL (32.0-36.5); MCV 92.2 fl (83.0-98.0); MONOCYTE % 10.4 %; MPV 10.2 fl (9.4-12.4); NEUTROPHIL # (ANC) 7.5 K/uL (1.4-9.0); NEUTROPHIL % 76.2 %; NRBC % 0 /100WBC (0-0.00); PLATELET COUNT 333 K/uL (150-450); RBC 3.58 M/uL (3.50-5.50); RDW-CV 15.2 % (11.9-14.6); WBC 9.9 K/uL (4.0-11.0)
[2016-07-02 07:40] LABS: ALBUMIN 2.4 gm/dL (3.5-5.0); ANION GAP 13.6 (10.0-19.0); CALCIUM 8.8 mg/dL (8.5-10.5); CREATININE 1.7 mg/dL (0.6-1.3); PHOSPHORUS 2.1 mg/dL (2.5-4.9); POTASSIUM 3.6 mMol/L (3.7-5.1)
--- NOTE | 2016-07-02 16:22 | NUR ---
Significant event: A&Ox3, forgetful. VSS. RA. Antibiotics continue. 2 tabs norco for pain, given once. Shift uneventful Follow Up: Continue current POC, watch renal status.
[2016-07-03 03:24] LABS: ALBUMIN 2.2 gm/dL (3.5-5.0); ANION GAP 11.3 (10.0-19.0); CALCIUM 8.4 mg/dL (8.5-10.5); CREATININE 1.8 mg/dL (0.6-1.3); POTASSIUM 3.3 mMol/L (3.7-5.1); TOTAL BILIRUBIN 0.8 mg/dL (0.0-1.5); TOTAL PROTEIN 6.6 g/dL (6.0-8.4)
--- NOTE | 2016-07-03 03:33 | NUR ---
Significant Event: PATIENT IS A/O X3 BUT FORGETFUL. VSS. HR 60'S IN PACED RHYTHM WITH UNDERLYING CHRONIC AFLUTTER. SBP 110-170'S. AFEBRILE. 02 SATS IN LOW TO MID 90'S CURRENTLY ON CPAP. RA DURING DAY. C/O CHRONIC/CONSTANT GENERALIZED JOINT PAIN. 2 TABS NORCO GIVEN X1 WITH SOME RELIEF. LUNGS CLEAR/DIM THROUHGOUT. SOB WITH ACTIVITY. UP WITH 1A WITH WALKER/GB. BOWELS ACTIVE. VOIDS PER URINAL. RIGHT CHEST TUNNELED POWER LINE SL. ON ACHS ACCUCHECKS. Follow up: CONTINUE TO MONITOR RENAL FUNCTION AND PER PLAN OF CARE.
[2016-07-03 03:48] LABS: BASOPHIL % 0.4 %; EOSINOPHIL # 0.2 K/uL (0.0-0.5); EOSINOPHIL % 2.8 %; HEMOGLOBIN 9.8 g/dL (11.0-16.0); IMMATURE GRANULOCYTE # 0.1 K/uL (0.0-0.3); IMMATURE GRANULOCYTE % 1.3 %; LYMPHOCYTE # 1.1 K/uL (0.8-4.0); LYMPHOCYTE % 13.3 %; MCH 29.3 pg (27.0-34.0); MCHC 31.6 gm/dL (32.0-36.5); MCV 92.8 fl (83.0-98.0); MONOCYTE % 11.7 %; MPV 10.4 fl (9.4-12.4); NEUTROPHIL # (ANC) 5.9 K/uL (1.4-9.0); NEUTROPHIL % 70.5 %; NRBC % 0 /100WBC (0-0.00); PLATELET COUNT 345 K/uL (150-450); RBC 3.34 M/uL (3.50-5.50); RDW-CV 15.1 % (11.9-14.6); WBC 8.3 K/uL (4.0-11.0)
--- NOTE | 2016-07-03 16:58 | NUR ---
Significant Event: Pt is a/o. Have not noticed forgetfulness to day. uses call light. Bed/chair alarms on for safety. Remains on 1500 ml fluid restrictions. Double lumen power glide R) chest. IV ATB. Voids per urinal. Denies c/o pain. Uses cpap @ hs. Follow up:
--- NOTE | 2016-07-04 04:23 | NUR ---
A/O. HR 60-70s. SBP 130-160s. ROOM AIR. CPAP AT NOC. AFEBRILE. 1A. BMx1. VOIDS PER URINAL. DENIES PAIN. HOME VS SNF.
[2016-07-04 07:25] LABS: ALBUMIN 2.5 gm/dL (3.5-5.0); ANION GAP 12.6 (10.0-19.0); CALCIUM 8.4 mg/dL (8.5-10.5); CREATININE 1.8 mg/dL (0.6-1.3); PHOSPHORUS 2.8 mg/dL (2.5-4.9); POTASSIUM 3.6 mMol/L (3.7-5.1)
[2016-07-04 07:28] LABS: BASOPHIL # 0.1 K/uL (0.0-0.2); BASOPHIL % 0.8 %; EOSINOPHIL # 0.2 K/uL (0.0-0.5); EOSINOPHIL % 2.6 %; HEMATOCRIT 33.7 % (37.0-53.0); HEMOGLOBIN 10.8 g/dL (11.0-16.0); IMMATURE GRANULOCYTE # 0.2 K/uL (0.0-0.3); IMMATURE GRANULOCYTE % 2.5 %; LYMPHOCYTE % 10.9 %; MCH 29.4 pg (27.0-34.0); MCV 91.8 fl (83.0-98.0); MONOCYTE # 1.1 K/uL (0.0-1.0); MONOCYTE % 12.5 %; MPV 10.1 fl (9.4-12.4); NEUTROPHIL # (ANC) 6.3 K/uL (1.4-9.0); NEUTROPHIL % 70.7 %; NRBC % 0 /100WBC (0-0.00); PLATELET COUNT 396 K/uL (150-450); RBC 3.67 M/uL (3.50-5.50); WBC 8.9 K/uL (4.0-11.0)
[2016-07-04] MEDS ORDERED: CEFAZOLIN2 GM/1001 IV (13:53)
[2016-07-04] MEDS ORDERED: GENTAMICIN IV (13:54)
[2016-07-04] MEDS ORDERED: PRINIVIL (ZESTR20 MG PO (13:57)
[2016-07-04] MEDS ORDERED: PANTOPRAZOLE SO40 MG PO (14:01)
[2016-07-04] MEDS ORDERED: RIFADIN, RIMAC300 MG PO (14:02)
[2016-07-04] MEDS ORDERED: FLORASTOR250 MG PO (14:03)
[2016-07-04] MEDS ORDERED: FLOMAX0.4 MG PO (14:04)
[2016-07-04] MEDS ORDERED: DESYREL50 MG PO (14:05)
--- NOTE | 2016-07-04 14:36 | NUR ---
Spoke with Dr Jason today to verify patient would be discharging. I called and spoke with pharmacy to see if patients Gent dose could be moved up so it could then be given in the morning with his cefizolin at [place]. Pharmacy changed infusion time to 1300. I called and set up outpatient IV therapy with Caitlin at [facility] in [place]. Patient is to be there at 2100 tonight for first outpatient Cefazolin dose. I updated patient. I faxed referral information and IV orders. Will continue to follow.
--- NOTE | 2016-07-04 15:10 | NUR ---
Introduced self and purpose of heart healthy education. at bedside. Calendar given, information reviewed, verbalized understanding.
--- NOTE | 2016-07-04 15:30 | NUR ---
Patient dismissed to home with outpatient IV infusion therapy. Both patient and deny question or concern of dismissal. Discussed at length care of power line and that patient is scheduled for IV infusion 07/04 at 2100. Both verbalize understanding of instructions. Dismissed via wheelchair out [place] entrance with KARY.
== END 2016-07-04 15:25 | disposition disaster alternative care site (69) | DRG 682 ==
LOC: GPCU 17:27 → GNTU 17:27 → GICU 17:27 → GPCU 06-25 10:44
PROVIDERS: Family Medicine; Internal Medicine Nephrology; ADMIT Internal Medicine
DX: N17.9 Acute kidney failure, unspecified (principal); I50.33 Acute on chronic diastolic (congestive) heart failure; G92 Toxic encephalopathy; J96.11 Chronic respiratory failure with hypoxia; E44.0 Moderate protein-calorie malnutrition; I13.0 Hypertensive heart and chronic kidney disease with heart failure and stage 1 through stage 4 chronic kidney disease, or unspecified chronic kidney disease; N18.3 Chronic kidney disease, stage 3 (moderate); E11.9 Type 2 diabetes mellitus without complications; Z79.4 Long term (current) use of insulin; E03.9 Hypothyroidism, unspecified; F32.9 Major depressive disorder, single episode, unspecified; E11.22 Type 2 diabetes mellitus with diabetic chronic kidney disease; E87.5 Hyperkalemia; D63.1 Anemia in chronic kidney disease; E66.01 Morbid (severe) obesity due to excess calories; M48.06 Spinal stenosis, lumbar region; Z86.73 Personal history of transient ischemic attack (TIA), and cerebral infarction without residual deficits; Z86.010 Personal history of colon polyps
CPT/HCPCS: C1751; J0690; J0696; J1580; J1644; J1940; J2020; J2185; J2700; J7030; J7040; J7050; J7060; J7120; J7612

== ENCOUNTER → 2016-07-12 | Outpatient (CLI) | payer MEDICARE, BC | LOC: LGSMG 15:12 | DX: N18.4 Chronic kidney disease, stage 4 (severe) (principal) ==

== ENCOUNTER → 2016-08-10 | Outpatient (CLI) | payer MEDICARE, BC | END | disposition disaster alternative care site (69) | LOC: GRAD 11:34 → GSDC 12:00 | PROC: 05PY33Z Removal of Infusion Device from Upper Vein, Percutaneous Approach (ICD-10-PCS; principal; 2016-08-10) | DX: T82.6XXA Infection and inflammatory reaction due to cardiac valve prosthesis, initial encounter (principal); Z46.82 Encounter for fitting and adjustment of non-vascular catheter ==

== ENCOUNTER 2016-08-29 13:30 | Inpatient (IN) | payer MEDICARE, BC ==
[~2016-08-29] VITALS: Ht 170.2 cm; Wt 88.9 kg
--- NOTE | ~2016-08-29 | CON ---
PATIENT'S NAME: SHIRA MCGOWAN [facility] AGE: 76 Y [address] ROOM: [id number] [place], [place] [address] LOCATION: GICU ADMIT DATE: 08/29/2016 Consultation DISCHARGE DATE: FAMILY PHYSICIAN: Dave Ramos MD ATTENDING PHYSICIAN: Juan Jason REFERRING PHYSICIAN: Kye Liz MD REFERRING PHYSICIAN: Dr. Juan Jason MD. CONTRACT ATTORNEY: Dr. Colvin in [place]. REASON FOR CONSULT: CVA and mitral valve replacement with recent history of endocarditis. HISTORY OF PRESENT ILLNESS: This is a very pleasant, 76-year-old gentleman who presented to his primary care physician in [place] with acute stroke symptoms. He carries a history of chronic atrial fibrillation with noted St. Gurwinder single-chamber pacemaker in place. He also recently, in june 2016, was treated for Staphylococcus aureus bacteremia, MRSA, and possible endocarditis. He has been followed by ID as well. On August 06, he finished his 6-week course of IV antibiotics and now is on p.o. cefadroxil. He denies any fevers or chills at home. On admission, his white count was 6.2. He had a transthoracic echocardiogram in June 2016 that showed a normal EF, mildly reduced right ventricular function, a bioprosthetic mitral valve, and moderate aortic stenosis. He has been on long- term anticoagulation for his chronic atrial fibrillation. On admission, he was in his usual state of health until his noticed that he had increased slurred speech and left facial weakness. The initial CT scan of the head was negative for any acute changes. He was not a candidate for tPA while on Xarelto. Therefore, he was transferred to [place] for further evaluation. PAST MEDICAL HISTORY: 1. Chronic anemia, diagnosed on 02/06/2012. 2. History of GI bleed in 2012. 3. Hyperlipidemia. 4. Hypertension. 5. Diabetes mellitus, on insulin. 6. Chronic kidney disease, stage 4. 7. Aortic valve stenosis. 8. Mitral valve stenosis, post bioprosthetic valve, done in [facility] in [place]. 9. Carotid artery disease. 10. Colon tumor, post resection. 11. Obstructive sleep apnea, using CPAP. 12. Coronary artery disease with 3-vessel CABG in 2009 with valve repair and PATIENT'S NAME: ROSLYN SAN JOSE Stacy [facility] AGE: 76 Y [address] ROOM: [address] [address] LOCATION: GICU ADMIT DATE: 08/29/2016 Consultation DISCHARGE DATE: FAMILY PHYSICIAN: Dave Ramos MD ATTENDING PHYSICIAN: Juan Jason open heart surgery with mitral valve replacement, bioprosthetic in 2012. PAST SURGICAL HISTORY: 1. Eyelid surgery in 2014. 2. Right shoulder repair. 3. Left ear cancer removed in 2014. 4. Hydrocele repair, 05/04/2013. 5. Colon resection in 04/2006. 6. Open heart surgery with CABG in 2009 and open heart surgery with mitral valve replacement in 2012. 7. Sick sinus syndrome, post St. Gurwinder placement, single chamber in 2012. SOCIAL HISTORY: He is . He has a remote history of tobacco use. He smoked a pack of cigarettes a day for 40 years, he quit in 1979. FAMILY HISTORY: Both mother and father had diabetes mellitus. ALLERGIES: NONE TO MEDICATION. CURRENT MEDICATIONS: 1. Tylenol Extra Strength 1000 mg t.i.d. p.r.n. 2. Allopurinol 300 mg daily. 3. Amlodipine 5 mg every day. 4. Atorvastatin 40 mg every day. 5. Calcium with vitamin D3 one tablet daily. 6. Duricef 500 mg b.i.d. 7. TriCor 145 mg daily. 8. Ferrous sulfate 325 mg daily. 9. Lasix 40 mg daily. 10. Insulin Tresiba FlexPen 16 units subcutaneous every h.s. 11. Levothyroxine 25 mcg every a.m. 12. Tradjenta 5 mg daily. 13. Lisinopril 20 mg daily. 14. Magnesium oxide 400 mg daily. 15. Easley-3 fatty acid fish oil 1 capsule daily. 16. Prilosec 20 mg b.i.d. 17. Potassium chloride 10 mEq every a.m. 18. Xarelto 15 mg daily. 19. Florastor 250 mg b.i.d. 20. Flomax 0.4 mg every h.s. 21. Restoril 15 mg p.o. every h.s. PATIENT'S NAME: ROSLYN [facility] AGE: 76 Y [address] ROOM: [id number] [place], [place] [address] LOCATION: GICU ADMIT DATE: 08/29/2016 Consultation DISCHARGE DATE: FAMILY PHYSICIAN: Dave Ramos MD ATTENDING PHYSICIAN: Juan Jason REVIEW OF SYSTEMS: GENERAL: He had felt fine in his usual state of health prior to his CVA. HEENT: Head: No history of headache. Eyes: No blurred vision or double vision. Ears: No problems with hearing. Nose: No epistaxis or rhinorrhea. Mouth: No gingival bleeding. He has a full set of dentures. NECK: No difficulty with swallowing reported. PULMONARY: No cough or hemoptysis. GI: Negative for nausea, vomiting, or diarrhea. No melena or hematochezia. GENITOURINARY: Positive for chronic kidney disease. Currently, no problems with urinary tract infection. He has had a hydrocele repair. MUSCULOSKELETAL: No complaints of arthralgias or myalgias. NEUROLOGIC: Denies numbness or tingling. He does have left facial drooping and slurred speech. ENDOCRINE: He is diabetic, on insulin therapy. He also is on Synthroid replacement therapy. PSYCHIATRIC: No mood changes have been noted. PHYSICAL EXAMINATION: VITAL SIGNS: He is 5 feet 7 inches, weight is 89.9 pounds, blood pressure 155/78, heart rate 59-60, and he is afebrile. GENERAL: He is alert. Very pleasant, answers questions appropriately with the help of his who is at bedside. SKIN: Warm, dry, and pink. HEENT: Pupils were equal, they did react briskly. He demonstrates left facial drooping was slurred speech, left eyelid drooping as well. LUNGS: Lung sounds were clear anteriorly and posteriorly. CARDIOVASCULAR: Regularly irregular. ABDOMEN: Soft. Bowel sounds are present. EXTREMITIES: No peripheral edema, no clubbing, and no cyanosis. Distal pulses are 2+/4. DIAGNOSTIC DATA: Telemetry is showing 1 to 1 paced with intrinsic rhythm of atrial fibrillation. LABORATORY DATA: Lactate was 0.9. ProBNP 2575. ESR 58. CRP 0.87. Procalcitonin was less than 0.05. BUN is 49, creatinine 2.45. Troponin 0.06. CK 7.4. Hemoglobin was 10.9. Sodium 138, potassium 5. Cholesterol 122, triglycerides 79, HDL 33, and LDL 73. ASSESSMENT: 1. Atrial fibrillation, appears to be chronic in nature. We will continue with rate control and long-term anticoagulation. 2. Cerebrovascular accident with a recent history of methicillin-resistant PATIENT'S NAME: SHIRA MCGOWAN [facility] AGE: 76 Y [address] ROOM: [place] [address] LOCATION: [facility] ADMIT DATE: 08/29/2016 Consultation DISCHARGE DATE: FAMILY PHYSICIAN: Dave Ramos MD ATTENDING PHYSICIAN: Juan Jason Staphylococcus aureus. Dr. Liz does recommend that we do a transesophageal echocardiogram. Further recommendations will be forthcoming after that procedure. We will hold his Xarelto at this time for that procedure. 3. Cerebrovascular accident. He has been on long-term anticoagulation. He did have a carotid Doppler done in April. 4. Coronary artery disease. There is no report of exertional chest pain. We will continue with his current home medications. 5. Sick sinus syndrome. We will check a pacemaker interrogation for any further evaluation. The assessment and plan, history of present illness, and physical exam are per Dr. Kye Liz MD. We would like to thank Dr. Jason for allowing us to participate in the patient's care. TRUDY LYNN APRN FOR KYE LIZ MD TGP/modl /[id number] d: 08/31/161930 t: 09/05/16 1011, CONSULTATION REPORT
--- NOTE | ~2016-08-29 | DS ---
PATIENT'S NAME: SHIRA MCGOWAN [facility] AGE: 76 Y [address] ROOM: [id number] [place], [place] [address] LOCATION: GICU ADMIT DATE: 08/29/2016 Discharge Summary DISCHARGE DATE: 09/01/2016 FAMILY PHYSICIAN: Dave Ramos MD ATTENDING PHYSICIAN: Juan Jason HISTORY OF PRESENT ILLNESS: This is a 76-year-old male with a past medical history of recent MSSA bacteremia. He has a prosthetic aortic valve replacement. He has history of AFib with pacemaker on half-way anticoagulation with Xarelto. He is appropriately dosed for his renal function at 15 mg daily. He has a history of sick sinus syndrome that is status post permanent pacemaker. He has CKD. His baseline renal function is about 1.8 to 1.9. He has a history of coronary artery disease status post bypass. He was admitted for left facial droop and slurring of speech to [place] and was transferred to [facility] for the same. At [place], he had a CT of the head that did not show any acute bleed or stroke. After he was transferred to [facility] in view of his history of MSSA bacteremia and prosthetic aortic valve replacement, Cardiology and ID was consulted and Urology was also consulted. Cardiology performed a TE and the TE showed suboptimal images. The aortic valve is severely sclerotic. Echodensity noted on the noncoronary cusp likely due to calcifications and degenerative changes; however, they are unable to exclude a vegetation. Of note, they however did find a PFO. Due to this, Cardiology has resumed his Xarelto at 15 mg daily, like I said dosed appropriately for his renal function and creatinine clearance, and in view of the PFO, they have started him on aspirin 325 daily. He also had blood cultures that was done in view of his MSSA bacteremia and the blood cultures showed no growth to date so far. I have discussed this with Dr. Morillo with Infectious Disease. He feels that the patient could remain on cefazolin while he was in hospitalization. However, he will be discharged back on his medication of cefadroxil 500 mg p.o. twice daily. However, instead of the original end date of September 07, he would like this to be continued until he is to follow up with ID. So, Dr. Morillo has requested that he follow up with ID in about 2 weeks and to readdress his antibiotics needs. As stated above, Neurology was consulted and they had opined that since he is able to ambulate well within 100 feet with minimum assistance and health assistance, he is doing well so far. They have instructed him not to drive until he is reevaluated. He is to follow up with Neurology in 2 weeks after he is discharged. This was explained to his and his son and they verbalized understanding and were in agreement. Lastly of note, he had some mild LUZ on CKD. As explained above, his baseline renal function is about 1.9 to 2. He came in with a creatinine of 2.5. His lisinopril and his Lasix was held and he was gently hydrated with 50 cubic centimeter an hour and his renal function came down to about 2.2 at discharge. I am going to hold his lisinopril 20 mg daily due to his renal function. His creatinine being above 2. His Lasix was held here. He takes about 40 mg PATIENT'S NAME: SHIRA MCGOWAN [facility] AGE: 76 Y [address] ROOM: [place] [address] LOCATION: [facility] ADMIT DATE: 08/29/2016 Discharge Summary DISCHARGE DATE: 09/01/2016 FAMILY PHYSICIAN: Dave Ramos MD ATTENDING PHYSICIAN: Juan Jason every day. I have elected to restart this on September 02 which is tomorrow in view of his severely concentric diastolic heart failure. However, in view of his LUZ, I would like him to follow up with Nephrology on Sunday, September 04, with a BMP and Nephrology to reassess whether he needs lisinopril and reassess his renal function in view of the Lasix also. He is to follow up with his PCP in 2 to 3 weeks. He needs to follow up with Neurology in 2 weeks. He needs to follow up with Cardiology in about 2 weeks, and he needs to follow up with ID in about 2 weeks and he is to follow up with Nephrology like I said above September 04 which is Sunday with a repeat BMP and to have his lisinopril and Lasix readdressed at that time. PHYSICAL EXAMINATION: VITAL SIGNS: At the time of discharge, the patient's vitals are, he is afebrile. His pulse is in the 60s. His respiratory rate is between 12 to 15. His blood pressure is well controlled at 117 to 130s/50s and 70s. He is 96% to 97% on room air. GENERAL: He is alert, awake, oriented in no acute distress. HEART: His heart rate is irregular. He is not tachycardic. He has no rubs, no murmurs that I can hear. LUNGS: His lung sounds are diminished but no crackles. No wheezing. ABDOMEN: Nontender. No guarding. No rigidity. Bowel sounds are normal. No pedal edema. NEUROLOGIC: Grossly normal except for the left facial droop that is mildly present. PSYCHIATRIC: He is alert, awake, oriented. The patient is able to make his own decisions. Affect is within normal limits. DISCHARGE MEDICATIONS: As stated above. His new medications include: 1. Aspirin 325 daily. 2. He will be restarted on Xarelto 15 mg daily. 3. Lisinopril 20 mg daily will be held until he follows up with Nephrology on Monday 09/04 with a repeat BMP. 4. Lasix 40 mg to be restarted on September 02. Again, he needs to follow up with Nephrology on September 04 with a BMP to readdress the need for Lasix. 5. Also, lastly his cefadroxil 500 mg p.o. b.i.d. will be continued instead of through September 07. He is to continue for at least 2 more weeks until he follows up with Dr. Morillo, Infectious Disease, in 2 weeks with a repeat blood culture. Rest of his home medications are resumed as stated in the H and P. BOSSMAN MENCHACA MD PATIENT'S NAME: SHIRA MCGOWAN [facility] AGE: 76 Y [address] ROOM: [id number] [place], [place] [address] LOCATION: [facility] ADMIT DATE: 08/29/2016 Discharge Summary DISCHARGE DATE: 09/01/2016 FAMILY PHYSICIAN: Dave Ramos MD ATTENDING PHYSICIAN: Juan Jason/blanca /[id number] d: 09/02/16 0400 t: 09/04/16 1331, DISCHARGE SUMMARY
--- NOTE | ~2016-08-29 | CON ---
PATIENT'S NAME: ROSLYN [facility] AGE: 76 Y [address] ROOM: [id number] [place], [place] [address] LOCATION: GICU ADMIT DATE: 08/29/2016 Consultation DISCHARGE DATE: FAMILY PHYSICIAN: Dave Ramos MD ATTENDING PHYSICIAN: Juan Jason DATE OF CONSULTATION: 08/30/2016 REFERRING PHYSICIAN: Coleman Maguire MD TIME: 2:05 p.m. CHIEF COMPLAINT: Stroke-like symptoms. HISTORY OF PRESENT ILLNESS: This is a 76-year-old male who was in his recent state of health. He has had a recent history of MSSA bacteremia and prosthetic aortic valve replacement, and was on long-term anticoagulation with Xarelto for atrial fibrillation. He was discharged in July. Today, he was sitting at the table, and his noticed some facial droop and his speech was not quite the same. She did drive him to the [facility]. The last known well time was around 9:30, however, the patient's cannot make sure that that is an absolute time because she did not really see the patient much that morning. The patient is confused as to why everyone is concerned because he states he feels absolutely normal. He went to the Emergency Department in [place], where they did a CT scan, which showed no acute pathology. He did have an NIH Stroke Scale of 3 there for dysarthria and left facial droop. On arrival here, he did have the dysarthria and the facial weakness. He states he feels fine. He denies any headaches, dizziness, vision changes, or nausea. He has not noticed any chest pain, shortness of breath, or abdominal pain. He has a fair appetite and has been eating and drinking normally. He has not gained or lost a lot of weight recently. He did drive from his home in [place] to [place] a couple of times yesterday without any issues. He denies any numbness or tingling or any weakness in any of his extremities. He denies any incoordination in any of his extremities. He states he has no problems with walking or moving. PAST MEDICAL AND SURGICAL HISTORY: 1. Coronary artery disease. 2. Coronary artery bypass grafting x4. 3. Bovine aortic valve replacement. PATIENT'S NAME: ROSLYN, [facility] AGE: 76 Y [address] ROOM: [id number] [place], [place] [address] LOCATION: [facility] ADMIT DATE: 08/29/2016 Consultation DISCHARGE DATE: FAMILY PHYSICIAN: Dave Ramos MD ATTENDING PHYSICIAN: Juan Jason 4. Atrial fibrillation, chronic, on long-term anticoagulation with Xarelto. 5. Chronic kidney disease, stage 3. 6. Sick sinus syndrome, status post permanent pacemaker. 7. Diabetes mellitus, type 2, insulin dependent. 8. Dyslipidemia. 9. Chronic hypoxic respiratory failure with 2 L oxygen dependence at night. CURRENT MEDICATIONS: 1. Glimepiride 4 mg p.o. daily. 2. Tradjenta 5 mg p.o. daily. 3. [place]-3 fatty acids 1000 mg p.o. daily. 4. Trazodone 50 mg p.o. at bedtime p.r.n. insomnia. 5. Calcium with vitamin D 600 mg p.o. daily. 6. Acetaminophen 1000 mg p.o. t.i.d. p.r.n. 7. Flomax 0.4 mg p.o. daily. 8. Florastor 250 mg p.o. b.i.d. 9. Xarelto 15 mg p.o. daily. 10. Omeprazole 20 mg p.o. b.i.d. 11. Magnesium oxide 400 mg p.o. daily. 12. Lisinopril 20 mg p.o. daily. 13. Tresiba insulin 16 units subcutaneous at bedtime. 14. Lasix 40 mg p.o. daily. 15. Iron 325 mg p.o. daily. 16. TriCor 145 mg p.o. daily. 17. Atorvastatin 40 mg p.o. daily. 18. Allopurinol 300 mg p.o. daily. 19. Cefadroxil 500 mg p.o. b.i.d. with meals. FAMILY HISTORY: His mother and father both had diabetes mellitus. He is unsure of their dates of . SOCIAL HISTORY: He is and lives in [place]. He has a remote smoking history of twenty years ago, but he has quit since 1979. There is no history of alcohol abuse. REVIEW OF SYSTEMS: All systems were reviewed and are negative except those mentioned in the HPI. PHYSICAL EXAMINATION: VITAL SIGNS: Temperature was 97.8, pulse was 60, respirations were 15, blood pressure was 124/67, and O2 saturations were 98% on room air. GENERAL: He is very pleasant, cooperative, and in no acute distress. He has an obvious left facial droop. PATIENT'S NAME: SHIRA MCGOWAN [facility] AGE: 76 Y [address] ROOM: [place] [address] LOCATION: [facility] ADMIT DATE: 08/29/2016 Consultation DISCHARGE DATE: FAMILY PHYSICIAN: Dave Ramos MD ATTENDING PHYSICIAN: Juan Jason SKIN: Supple, pink, warm, and dry. HEENT: Atraumatic and normocephalic. Sclerae were non-icteric. Pupils were equal, round, and reactive to light. Extraocular movements were intact. NECK: Supple. No nuchal rigidity. No JVD. No bruits were auscultated. CHEST: Clear to auscultation bilaterally. HEART: Regular with a 2 to 6 or 3 to 6 systolic ejection murmur. NEUROLOGICAL: Cranial nerves II through XII showed the left facial weakness as described. Speech is dysarthric, but comprehensible. Strength is 5/5 in bilateral upper and lower extremities. NIH Stroke Scale is 2 for speech and facial droop. Deep tendon reflexes are 1+ throughout. Sensation is intact to light touch. Gait was not observed. LABORATORY AND IMAGING STUDIES: Laboratory and x-ray data from [place] showed an EKG that shows atrial flutter with a paced rhythm. Lipids showed an LDL of 73. CT of head was reviewed, and is negative for any intracranial pathology. ASSESSMENT AND PLAN: 1. Dysarthria with left facial droop. Suspect stroke. He is not a candidate on tPA because he is anticoagulated with Xarelto. His and he both state they have not missed any doses of Xarelto. Additionally, his last normal time is difficult to ascertain. It is okay to continue the Xarelto therapy in light of the stroke due to his multiple comorbid conditions including the atrial fibrillation and the valve. I agree with continuing his statin therapy also. The LAKISHA shows a small patent foramen ovale per preliminary report. However, the patient is on anticoagulation. Our plan would be to do a CT tomorrow to see if that stroke can be seen on imaging. Obviously, the patient cannot have an MRI because of his pacemaker. We will wait for the official report for the LAKISHA also. Apparently, there is nothing on the valve of concern on the preliminary report. 2. Hyperlipidemia. Continue statin medication as ordered. 3. Dysarthria. Speech evaluates for swallowing function and go from there. 4. Chronic kidney disease, stage 3. We will be unable to get a CTA because of the function of his kidneys. The plan of care was discussed with the patient and his . Dr. Griffin and I developed the plan of care. If there are any concerns, please do not hesitate to notify us. We will certainly follow up on the CT tomorrow, which hopefully will identify if there is a stroke and also be negative for any bleed. Thank you for this consult. PATIENT'S NAME: SHIRA MCGOWAN [facility] AGE: 76 Y [address] ROOM: [place] [address] LOCATION: [facility] ADMIT DATE: 08/29/2016 Consultation DISCHARGE DATE: FAMILY PHYSICIAN: Dave Ramos MD ATTENDING PHYSICIAN: Juan Jason JG OGLESBY APRN FOR ARUN GRIFFIN MD PP/modl /[id number] d: 08/30/162299 t: 09/05/16 184, CONSULTATION REPORT
--- NOTE | ~2016-08-29 | CON ---
PATIENT'S NAME: SHIRA MCGOWAN [facility] AGE: 76 Y [address] ROOM: [id number], [place] [address] LOCATION: [facility] ADMIT DATE: 08/29/2016 Consultation DISCHARGE DATE: FAMILY PHYSICIAN: Dave Ramos MD ATTENDING PHYSICIAN: Juan Jason DATE OF CONSULTATION: 08/30/2016 REFERRING PHYSICIAN: Coleman Maguire MD I was asked to see this patient in Telemedicine consultation. Consultation was performed with the assistance of nurse practitioner, Edilma Banks, on 08/30/2016. 35 minutes spent with nurse practitioner reviewing charts and imaging, repeating sanchez portions of history and examination. I agree with the discussed assessment and plan of care. Simba Dumont M.D. Neurology Telespecialist Services. MD DRE TINOCO/blanca /[id number] d: t: 08/30/16 2133, CONSULTATION REPORT
--- NOTE | ~2016-08-29 | ECHO ---
Transesophageal Echocardiography Report (LAKISHA) Demographics Patient Name SHIRA MCGOWAN Date of Study 08/30/2016 Patient Number [id number] Visit Number [id number] Date of 1940 Room Number [id number] Gender Male Number Age 76 year(s) Referring Feller Machine Operator Sunshine RVT, RDCS Physician Paulina Physician Interpreting Chika Ruth Redipper Physician Supervising Ordering Casie Escalante MD, MD/MLP Physician Nurse Stress Worker'S Compensation Claims Examiner Conclusions Summary Indication: CVA, Sepsis Transesophageal echocardiogram was done under general anesthesia without difficult probe placement . Technically difficult study with suboptimal images Severe concentric LVH. Mild septal hypokinesis with estimated LVEF 55% The aortic valve is severely sclerotic. Echo density noted on non coronary cusp likely due to calcification and degenerative changes; however, cannot exclude vegetation. Trivial aortic insufficiency. Mild aortic stenosis. Valve area 2.6 cm on planimetry. Mean gradient across aortic valve is 12 mm hg There is no LA or LA appendage thrombus or spontaneous contrast. Bubble study was done, bubbles crossed to the left atrium suggesting a PFO . The bioprosthetic mitral valve appears to function normally with no perivalvular leak. Trivial mitral regurgitation There is mild plaque seen in the descending thoracic aorta. The findings were discussed with Dr. Jason and Dr. Maguire Procedure Type of Study LAKISHA procedure:M-Mode, Doppler , LAKISHA with Color. Procedure Date Date: 08/30/2016 Start: 10:01 AM Study Location: Inpatient Portable Technical Quality: Adequate visualization Indications:CVA. Additional Indications:recent MRSA Appropriate Use Criteria: 9 Patient Status: Routine HR: 59 bpm BP: 159/108 mmHg Doppler Measurements AV Peak Velocity: 2.21 m/s AV Peak Gradient: 19.54 mmHg AV Mean Gradient: 12 mmHg Findings Left Ventricle Severe concentric LVH. Mild septal hypokinesis with estimated LVEF 55% Right Ventricle Not very well visualized Left Atrium There is no LA or LA appendage thrombus or spontaneous contrast. Bubble study was done, bubbles crossed to the left atrium suggesting a PFO . Right Atrium The right atrium is mildly dilated. Mitral Valve The bioprosthetic mitral valve appears to function normally with no perivalvular leak. Trivial mitral regurgitation Aortic Valve The aortic valve is severely sclerotic. Echo density noted on non coronary cusp likely due to calcification and degenerative changes; however, cannot exclude vegetation. Trivial aortic insufficiency. Mild aortic stenosis. Valve area 2.6 cm on planimetry. Mean gradient across aortic valve is 12 mm hg Tricuspid Valve The tricuspid valve is not well visualized. Pulmonic Valve The pulmonic valve is not well visualized. No obvious pathology noted Miscellaneous There is mild plaque seen in the descending thoracic aorta. Signature dtt: ULISES CLAY dtd: 08/30/16 1001 Physician Self Edit
--- NOTE | ~2016-08-29 | CON ---
PATIENT'S NAME: ROSLYN SHIRA Stacy [facility] AGE: 76 Y [address] ROOM: [address] [address] LOCATION: GICU ADMIT DATE: 08/29/2016 Consultation DISCHARGE DATE: FAMILY PHYSICIAN: Dave Ramos MD ATTENDING PHYSICIAN: Juan Jason DATE OF CONSULTATION: 08/30/2016 REFERRING PHYSICIAN: Coleman Maguire MD REASON FOR CONSULTATION: Recent Staph aureus bacteremia with new CVA symptoms. HISTORY OF PRESENT ILLNESS: Mr. White is a 76-year-old male who had a Staph aureus bacteremia on the end of June. He has a bioprosthetic valve and a pacemaker in place. Because of that, he was treated aggressively for prosthetic valve endocarditis through August 06. He finished his antibiotics as planned. Due to the indwelling pacemaker and desire to not to have to have that removed, he was started on cefadroxil twice a day. He has been taken this faithfully. He had been doing well and was at a business meeting when his thought maybe his speech was a little slurred. She stopped the meeting and looked at him and thought that his left face had some droop. He was therefore taken into [facility] and then transferred up to [facility]. He is feeling better now and his facial droop has resolved. This is the first time he was able to eat something today. He is not having any weakness of his left side or his right side for that matter. He did not have any fevers, chills, or sweats. He had been the taken oral antibiotics faithfully. Because of his recent history, Infectious Disease was asked to see him. He did have a CT scan of his head, but cannot have an MRI due to the pacemaker. PAST MEDICAL HISTORY: Significant for type 2 diabetes, use of the bioprosthetic valve, hypertension, hyperlipidemia, coronary artery disease, chronic renal insufficiency, atrial fibrillation, sick sinus syndrome, and chronic respiratory failure. MEDICATIONS: He is back on cefazolin. His other medications are reviewed. ALLERGIES: NONE NOTED. SOCIAL HISTORY: Distant smoker. No illicit drug use or alcohol. He is and retired. FAMILY HISTORY: PATIENT'S NAME: SHIRA WHITE [facility] AGE: 76 Y [address] ROOM: [id number] [place], [place] [address] LOCATION: [facility] ADMIT DATE: 08/29/2016 Consultation DISCHARGE DATE: FAMILY PHYSICIAN: Dave Ramos MD ATTENDING PHYSICIAN: Juan Jason Diabetes in his parents. REVIEW OF SYSTEMS: A complete review of systems is otherwise negative with pertinent positives and negatives in the HPI. PHYSICAL EXAMINATION: GENERAL: He is not in any acute distress, awake, alert, oriented, sitting up in a chair, eating lunch. No dysarthria now and his face looks symmetric. VITAL SIGNS: His T-max is 98.3, blood pressure is 145/77, pulse 60, and respirations 26. HEENT: NC/AT. EOMI. PERRLA. NECK: Supple. LUNGS: Clear. HEART: Irregularly irregular. ABDOMEN: Soft and nontender. EXTREMITIES: Without cyanosis, clubbing, or edema. No peripheral stigmata of endocarditis. LABORATORY DATA: Blood cultures have no growth thus far at one day. White count 5.5, hemoglobin 11.0, and platelet count 268. Creatinine is 2.5, which is up from his previous baseline of about 1.8. ASSESSMENT: 1. Transient ischemic attack. 2. Prior Oxacillin-Sensitive Staphylococcus Aureus bacteremia with given pacemaker and bioprosthetic valve. He has been on chronic suppression with p.o. cefadroxil. PLAN: At this time, I agree with the cefazolin while we await blood cultures. He may have had blood cultures at [facility], to that I will need to be followed up on. If his blood cultures are clear, then I would continue him back on his oral cefadroxil. If he has had a bacteremia that broke through the cefadroxil, then we have a more serious problem, we might not be able to chronically suppress this. In my experience, it is very difficult to chronically suppress an endovascular infection if indeed his pacemaker wire is infected. In that situation, we would probably need to seriously consider removal of the device, otherwise we are likely to have recurring problems going forward. Please call with questions. PATIENT'S NAME: SHIRA WHITE [facility] AGE: 76 Y [address] ROOM: [address] [address] LOCATION: [facility] ADMIT DATE: 08/29/2016 Consultation DISCHARGE DATE: FAMILY PHYSICIAN: Dave Ramos MD ATTENDING PHYSICIAN: Juan Jason MD RCS/modl /[id number] d: 08/30/162106 t: 08/31/16 0814, CONSULTATION REPORT
--- NOTE | ~2016-08-29 | CON ---
PATIENT'S NAME: SHIRA MCGOWAN [facility] AGE: 76 Y [address] ROOM: [place] [address] LOCATION: [facility] ADMIT DATE: 08/29/2016 Consultation DISCHARGE DATE: FAMILY PHYSICIAN: Dave Ramos MD ATTENDING PHYSICIAN: Juan Jason REFERRING PHYSICIAN: Coleman Maguire MD Consult for Dr. Jason. HISTORY OF PRESENT ILLNESS: This 76-year-old gentleman is referred for rehab evaluation, admitted on 08/29 with his telling that she noticed that he had left facial weakness and droop with slurring of speech. He was taken to the local hospital. CT scan at the local hospital grossly was within normal limits. He remained dysarthric when he was here and still today his and his son confirm that his speech is still a little bit slurred. However, when I saw him, I noticed that he has some weakness on the right side of the face rather than the left. He has ectropion of eyelids, especially on the left side. History of diabetes type 2 and hypertension. He is with atrial fibrillation, status post pacemaker placement. At the present time, he is alert and oriented x3, sometimes not so able to remember details. He can speak. His voice is clear and not wet. Tongue and soft palate seem to be moving symmetrically. He can swallow without difficulty so far. He is saturating at room air. Denied any headache. No double vision. No vertigo. Denied any nausea or vomiting. No chest pain. No shortness of breath. He denied any trauma also. At the present time, he can move all four. Seemingly, a little bit right upper extremity is less coordinated in comparison to the left. However, right and left lower extremities are moving symmetrically. He has good bowel and bladder control. His vitals are as follows: Blood pressure 145/77, temperature 98.3, pulse 60, respirations rate 20. He is 5 feet 7 inches tall and weighs 88.8 kg. MEDICATIONS: He is on the following medications: 1. Lipitor. PATIENT'S NAME: SHIRA MCGOWAN [facility] AGE: 76 Y [address] ROOM: [place] [address] LOCATION: [facility] ADMIT DATE: 08/29/2016 Consultation DISCHARGE DATE: FAMILY PHYSICIAN: Dave Ramso MD ATTENDING PHYSICIAN: Juan Jason 2. NaCl 0.9%. 3. Glucagon. 4. Dextrose. 5. Glucose. 6. Insulin aspartate, moderate scale. 7. Tylenol. 8. Cefazolin. 9. Aspirin. 10. Protonix. ASSESSMENT AND PLAN: He ambulates 100 feet x1 with minimum assistance to handheld assistance. He is doing well so far. I will continue him on PT, OT. Please see the orders. I would like to have him on incentive spirometer and also TEDs knee- high with [place]. I would like him not to drive until he is re-evaluated. I will see him in about maybe 2 weeks after he is discharged if he is discharged in my office. All the above was explained to him, his , and his son. They verbalized understanding and agreement. Thank you for this referral. I would be following alongside with you. GRECIA BELLO MD WMS/modl /[id number] d: 08/30/160 t: 09/01/16 0712, CONSULTATION REPORT
--- NOTE | ~2016-08-29 | HP ---
PATIENT'S NAME: SHIRA MCGOWAN [facility] AGE: 76 Y [address] ROOM: [id number], [place] [id number] LOCATION: [facility] ADMIT DATE: 08/29/2016 History & Physical DISCHARGE DATE: FAMILY PHYSICIAN: PHYSICIAN, UNKNOWN ATTENDING PHYSICIAN: Luis Alfredo Jason DATE OF SERVICE: CHIEF COMPLAINT: Stroke symptoms. HISTORY OF PRESENTING ILLNESS: This 76-year-old white male with recent history of MSSA bacteremia and prosthetic aortic valve replacement on long-term anticoagulation with Xarelto. He was transferred to [facility] from [place] with stroke symptoms that appeared this morning. The point of last known normal is a little uncertain, but his first noticed slurred speech and left facial droop around 9:30 a.m. She admits that she is not sure if the symptoms had been present earlier than that. The patient himself had not noticed any new symptoms and currently feels "normal." At any rate, he was taken to the Emergency Department in [place] where a CT scan was performed. This was negative for acute stroke. He did have a NIH Stroke Scale of 3 and was demonstrating obvious dysarthria and left facial droop. On his arrival here, the dysarthria and facial weakness persist. He reports feeling "fine." He denies headaches, dizziness, or nausea. No blurred vision or double vision or scotomata. He has not noticed any chest pain, shortness of breath, or abdominal pain. He has been eating and drinking normally. Yesterday, he drove from his home in [place] to [place] a couple of times without any incidence. He admits that he did not interact with his over the course of the day yesterday or this morning until around 0930 hours. No numbness, tingling, or weakness in his extremities or any other associated physical or constitutional complaints. PAST MEDICAL HISTORY: ALLERGIES: NO KNOWN DRUG ALLERGIES. ILLNESSES: 1. Coronary artery disease status post coronary artery bypass grafting x4. 2. Bovine aortic valve replacement. 3. Atrial fibrillation, chronic, on long-term anticoagulation with Xarelto. 4. Chronic kidney disease, stage 3. 5. Sick sinus syndrome, status post permanent pacemaker implant. PATIENT'S NAME: SHIRA MCGOWAN [facility] AGE: 76 Y [address] ROOM: [id number] [place] [id number] LOCATION: [facility] ADMIT DATE: 08/29/2016 History & Physical DISCHARGE DATE: FAMILY PHYSICIAN: PHYSICIAN, UNKNOWN ATTENDING PHYSICIAN: Luis Alfredo Jason 6. Diabetes mellitus, type 2, insulin dependent. 7. Dyslipidemia. 8. Chronic hypoxic respiratory failure with 2 L oxygen dependence at nighttime, on CPAP. CURRENT MEDICATIONS: 1. Glimepiride 4 mg p.o. q. day. 2. Tradjenta 5 mg p.o. q. day. 3. [place]-3 fatty acids 1000 mg p.o. q. day. 4. Trazodone 50 mg p.o. at bedtime p.r.n. insomnia. 5. Calcium with vitamin D 600 mg p.o. q. day. 6. Acetaminophen 1000 mg p.o. t.i.d. p.r.n. 7. Flomax 0.4 mg p.o. q. day. 8. Florastor 250 mg p.o. b.i.d. 9. Xarelto 15 mg p.o. q. day. 10. Omeprazole 20 mg p.o. b.i.d. 11. Magnesium oxide 400 mg p.o. q. day. 12. Lisinopril 20 mg p.o. q. day. 13. Tresiba insulin 16 units subcutaneous at bedtime. 14. Lasix 40 mg p.o. q. day. 15. Iron 325 mg p.o. q. day. 16. TriCor 145 p.o. q. day. 17. Atorvastatin 40 mg p.o. q. day. 18. Allopurinol 300 mg p.o. q. day. 19. Cefadroxil 500 mg p.o. b.i.d. with meals. FAMILY HISTORY: Significant for diabetes mellitus in both mother and father. SOCIAL HISTORY: He is and lives in [place]. He has a distant past history of smoking about 20 pack years but has been quit since 1979. There is no significant history of alcohol use. REVIEW OF SYSTEMS: As per HPI. All other organ systems are reviewed and are negative. PHYSICAL EXAMINATION: VITAL SIGNS: Temperature 97.8, pulse 60, respirations 15, blood pressure 124/67, and O2 saturation 98% on room air. GENERAL: He is very pleasant, cooperative, lying in the bed, in no acute distress. He demonstrates an obvious left facial droop. SKIN: Supple, pink, warm, and dry. There is some hyperpigmentation over the lower extremities, but no skin rashes. HEENT: Otherwise, normocephalic. Sclerae nonicteric. Pupils equal, round, PATIENT'S NAME: SHIRA MCGOWAN [facility] AGE: 76 Y [address] ROOM: [id number] [place] [id number] LOCATION: [facility] ADMIT DATE: 08/29/2016 History & Physical DISCHARGE DATE: FAMILY PHYSICIAN: PHYSICIAN, UNKNOWN ATTENDING PHYSICIAN: Luis Alfredo Jason and reactive to light and accommodation. Extraocular movements appear intact. Nasal turbinates normal in appearance. Oropharynx is clear. Mucous membranes are pink and moist. NECK: Supple. No masses or adenopathy. No thyromegaly. No JVD. CHEST: Wall is symmetrical. HEART: Regular with a grade 2/6 to 3/6 systolic ejection murmur. LUNGS: Diminished at the bases but no crackles or wheezes are heard. ABDOMEN: Soft, protuberant, nontender. Bowel sounds are present. No masses or hepatosplenomegaly. GENITOURINARY: Not done. RECTAL: Not done. EXTREMITIES: Display trace to 1+ pitting edema. No cyanosis. NEUROLOGIC: Neurologically, cranial nerves 2 through 12 demonstrate the left facial weakness as described above. Speech is dysarthric, but comprehensible. Strength is 5/5 bilaterally in upper and lower extremities. DTRs are 0 to 1+. Roughly symmetrical. Sensation appears intact. Gait is not observed. LABORATORY DATA AND IMAGING STUDIES: Laboratory and x-ray data from [place]; urinalysis was negative except for moderate blood. Chemistries revealed a BUN and creatinine of 49 and 2.49 respectively, sodium and potassium of 138 and 5.0, chloride and CO2 of 106 and 21. AST and ALT of 34, and 14 respectively, bilirubin 0.5, and glucose was 206. Lipids showed a total cholesterol of 122, HDL 33, and LDL of 73. A CBC showed a white blood cell count of 6.2, hemoglobin of 10.9, hematocrit 35.0, and platelets 266,000. A 12-lead EKG shows atrial flutter with a paced rhythm at 60 beats per minute. INR was 1.5. ASSESSMENT AND PLAN: 1. Dysarthria with left facial droop. Suspect acute embolic stroke. He is not a candidate for tPA based on anticoagulation with Xarelto. Additionally, there is uncertainty regarding the time of last known normal. He is hemodynamically stable. We will admit to inpatient care. I placed him on the stroke pathway. We will supplement his medical treatment with aspirin 81 mg daily. Plan to continue with statin therapy and long-term anticoagulation with Xarelto. We will look for possible embolic sources including the possibility of LAKISHA, transesophageal echocardiography (see below). We will plan for Physical Therapy, Occupational Therapy, and Speech Therapy evaluations additionally. 2. Atrial flutter, rate controlled and paced currently. He is on long-term anticoagulation with Xarelto. We will plan to continue with Xarelto at least initially. We will request transesophageal echocardiography and consultation by Cardiology. 3. Infective endocarditis by history. He is still on oral antibiotic therapy, but off IV antibiotic therapy. We will repeat blood cultures and get inflammatory markers. We will plan for transesophageal PATIENT'S NAME: SHIRA MCGOWAN [facility] AGE: 76 Y [address] [id number] [id number] LOCATION: [facility] ADMIT DATE: 08/29/2016 History & Physical DISCHARGE DATE: FAMILY PHYSICIAN: PHYSICIAN, UNKNOWN ATTENDING PHYSICIAN: Luis Alfredo Jason echocardiography and follow up on that when the results are known. We will go ahead and reinitiate IV antibiotic therapy with cefazolin. Consider discontinuation depending on culture results and echocardiogram findings. 4. Coronary artery disease status post coronary artery bypass grafting. Currently, clinically stable and asymptomatic. We will plan to continue with statin therapy. Add aspirin therapy and consider adding a beta- dio therapy at some point. 5. Diabetes mellitus, type 2, insulin dependent. Plan to continue with Accu- Cheks and sliding scale insulin while he is inpatient. 6. Chronic kidney disease, stage 3 to 4. Creatinine is currently around baseline. He appears to be volume compensated and stable. We will monitor. 7. Chronic hypoxic respiratory failure with obstructive sleep apnea. Stable on CPAP and supplemental oxygen at bedtime. Encourage good pulmonary hygiene and monitor. 8. Essential hypertension, controlled. We will monitor and try to make adjustments if necessary. 9. Deep venous thrombosis prophylaxis. He is going to be fully anticoagulated with Xarelto. We will follow the venous thromboembolism protocol if that changes. Total time spent 60 minutes. LUIS ALFREDO J MD HUNTER JASON/blanca /[id number] D: [id number] T: [id number] HISTORY & PHYSICAL
[~2016-08-29 13:30] MED LIST changes: -DURICEF (NON-500 MG PO; -ECOTRIN325 MG PO; -K-TAB 10MEQ10 MEQ PO; -LEVOTHROID (SY25 MCG PO; -NORVASC5 MG PO; -RESTORIL15 MG PO
[2016-08-29] MEDS ORDERED: K-TAB 10MEQ10 MEQ PO (14:32)
[2016-08-29] MEDS ORDERED: NORVASC5 MG PO (14:32)
[2016-08-29] MEDS ORDERED: RESTORIL15 MG PO (14:33)
[2016-08-29] MEDS ORDERED: DURICEF (NON-500 MG PO (14:44)
[2016-08-29] MEDS ORDERED: LEVOTHROID (SY25 MCG PO (14:46)
--- NOTE | 2016-08-29 14:48 | NUR ---
Pt is 76 y/o male admit for slurred speech,mouth drooping for hospitalist. Pt alert and oriented x3. Does have mouth drooping and slightly slurred speech on arrival. Hx of htn,afib,CABG,valve replaced,TUSCARORA,arthritis,gout,gerd,colon CA, chronic kidney disease,renal insuff,urgency/frequency,DM,pacemaker. Resides at home with his . Pt in hospital in June for a similar workup which ended up being a staph infection. He is still on PO antibiotics for that. Pt's states they were meeting with a sales promotion director and he all of a sudden developed some slurred speech and mouth drooping. Pt denies weakness in extremities or any difficulty walking. Came from [place] ED/hospital. no allergies.
--- NOTE | 2016-08-30 05:09 | NUR ---
Significant Event: PATIENT A/O, DENIES PAIN OR DISCOMFORT. LS CLEAR, SPO2 >90% ON RA, BS X4. FOLLOWS COMMANDS X4 EXTREMETIES, EQUAL STRENGTH BILATERALLY. DENIES NUMBNESS OR TINGLING. L) FACIAL DROOPING, SPEECH SLIGHTLY SLURRED. VOIDS PER URINAL CLEAR YELLOW. VSS. PATIENT REMAINS NPO UNTIL ST CAN PERFORM SWALLOW EVAL. Follow up:CONTINUE
[2016-08-30 05:44] LABS: BASOPHIL # 0.1 K/uL (0.0-0.2); BASOPHIL % 0.9 %; EOSINOPHIL # 0.2 K/uL (0.0-0.5); EOSINOPHIL % 3.5 %; IMMATURE GRANULOCYTE % 0.2 %; LYMPHOCYTE # 0.7 K/uL (0.8-4.0); LYMPHOCYTE % 12.8 %; MCH 29.1 pg (27.0-34.0); MCHC 32.4 gm/dL (32.0-36.5); MCV 89.9 fl (83.0-98.0); MONOCYTE # 0.7 K/uL (0.0-1.0); MONOCYTE % 11.8 %; MPV 9.7 fl (9.4-12.4); NEUTROPHIL # (ANC) 3.9 K/uL (1.4-9.0); NEUTROPHIL % 70.8 %; NRBC % 0 /100WBC (0-0.00); RBC 3.78 M/uL (3.50-5.50); RDW-CV 14.9 % (11.9-14.6); WBC 5.5 K/uL (4.0-11.0)
[2016-08-30 05:45] LABS: PLATELET COUNT 268 K/uL (150-450)
[2016-08-30 06:05] LABS: ALBUMIN 3.2 gm/dL (3.5-5.0); ANION GAP 12.3 (10.0-19.0); CALCIUM 9.1 mg/dL (8.5-10.5); CREATININE 2.5 mg/dL (0.6-1.3); PHOSPHORUS 4.2 mg/dL (2.5-4.9); POTASSIUM 4.3 mMol/L (3.7-5.1)
--- NOTE | 2016-08-30 08:22 | NUR ---
ROUTINE CONSULT FOR STROKE DIET ED NOTED. WILL COMPLETE APPROPRIATE PRIOR TO DISMISSAL.
--- NOTE | 2016-08-30 14:39 | NUR ---
Introduced self and role of care management to patient and his . They are familiar with me from his last visit. The live in [facility]. He is able to do his ADL's independenlty. His is available to assist as needed. He plans on returning home on discharge. He denies any needs at this time. Will continue to follow.
--- NOTE | 2016-08-30 15:30 | NUR ---
Significant Event: PT A&O x3. VSS, on RA. Slight facial droop, slight slurred speech/aphasia. Stroke scale -2. PT denies pain. Tolerating renal diet, thin liquids. LAKISHA done this AM. PT remains on antibiotics. Ambulates with walker, gait belt and 1 assist. IV patent. Voiding without difficulties. Follow up:
--- NOTE | 2016-08-31 05:02 | NUR ---
Significant Event: Patient A/O x 3. Denies N/T. Follows commands. Moves all extremities spontaneously. Room air. CPAP at night. HTN at times. Pacemaker. ADA, Renal diet. Voids per urinal. GB/walker 1 assist. PIV to R) fa running NS at 50 ml/hr. ACHS accuchecks. No pain. Refused bath this shift. Follow up:
[2016-08-31 05:16] LABS: BASOPHIL # 0.1 K/uL (0.0-0.2); BASOPHIL % 1.1 %; EOSINOPHIL # 0.3 K/uL (0.0-0.5); EOSINOPHIL % 4.6 %; HEMATOCRIT 35.4 % (37.0-53.0); HEMOGLOBIN 11.3 g/dL (11.0-16.0); IMMATURE GRANULOCYTE % 0.4 %; LYMPHOCYTE # 0.8 K/uL (0.8-4.0); LYMPHOCYTE % 14.2 %; MCHC 31.9 gm/dL (32.0-36.5); MONOCYTE # 0.7 K/uL (0.0-1.0); MONOCYTE % 12.6 %; MPV 9.9 fl (9.4-12.4); NEUTROPHIL # (ANC) 3.8 K/uL (1.4-9.0); NEUTROPHIL % 67.1 %; NRBC % 0 /100WBC (0-0.00); PLATELET COUNT 265 K/uL (150-450); RBC 3.89 M/uL (3.50-5.50); RDW-CV 14.6 % (11.9-14.6); WBC 5.7 K/uL (4.0-11.0)
[2016-08-31 05:32] LABS: ALBUMIN 3.1 gm/dL (3.5-5.0); ANION GAP 12.5 (10.0-19.0); CALCIUM 8.9 mg/dL (8.5-10.5); CREATININE 2.5 mg/dL (0.6-1.3); POTASSIUM 4.5 mMol/L (3.7-5.1); TOTAL PROTEIN 7.7 g/dL (6.0-8.4)
[2016-08-31 05:36] LABS: TOTAL BILIRUBIN 0.5 mg/dL (0.0-1.5)
--- NOTE | 2016-08-31 16:23 | NUR ---
Significant Event: Patient alert and oriented x3. NIHSS= 2. Pupils 3mm, brisk. Denies numbness/tingling. VSS, on room air. Pacemaker present. A fib/flutter noted. Wears CPAP at HS. Voids per urinal. Bottom reddened. IV to R) FA, saline locked. Renal diet. AC/HS accucheks with moderate coverage. at bedside. Follow up: NTU status.
--- NOTE | 2016-09-01 06:00 | NUR ---
Significant Event: Follow up: A/OX3, VITAL SIGNS WNL, NO PAIN, VOIDS, SLEEP ALL NIGHT WITH CPAP ON
[2016-09-01 07:01] LABS: BASOPHIL % 0.7 %; EOSINOPHIL # 0.4 K/uL (0.0-0.5); EOSINOPHIL % 6.2 %; HEMOGLOBIN 10.7 g/dL (11.0-16.0); IMMATURE GRANULOCYTE % 0.2 %; LYMPHOCYTE # 1.1 K/uL (0.8-4.0); LYMPHOCYTE % 18.8 %; MCH 29.7 pg (27.0-34.0); MCHC 32.4 gm/dL (32.0-36.5); MCV 91.7 fl (83.0-98.0); MONOCYTE # 0.7 K/uL (0.0-1.0); MONOCYTE % 12.6 %; MPV 10.4 fl (9.4-12.4); NEUTROPHIL # (ANC) 3.5 K/uL (1.4-9.0); NEUTROPHIL % 61.5 %; NRBC % 0 /100WBC (0-0.00); PLATELET COUNT 265 K/uL (150-450); RDW-CV 14.8 % (11.9-14.6); WBC 5.7 K/uL (4.0-11.0)
[2016-09-01 07:19] LABS: ALBUMIN 2.9 gm/dL (3.5-5.0); ALK PHOS 49 IU/L (33-138); AST 13 IU/L (10-40); BLOOD UREA NITROGEN 40 mg/dL (6-24); CALCIUM 8.7 mg/dL (8.5-10.5); CHLORIDE 107 mMol/L (96-110); CO2 25 mMol/L (22-32); CREATININE 2.2 mg/dL (0.6-1.3); SODIUM 139 mMol/L (135-145); TOTAL BILIRUBIN 0.5 mg/dL (0.0-1.5); TOTAL PROTEIN 7.2 g/dL (6.0-8.4)
[2016-09-01 07:22] LABS: ALT < 10 IU/L (12-78)
[2016-09-01] MEDS ORDERED: ECOTRIN325 MG PO (11:11)
--- NOTE | 2016-09-01 15:14 | NUR ---
Significant Event: Patient discharged to home. Left ICU at 1150 per w/c accompanied by transport staff. To be driven home per private vehicle by . a/o x 3. denies pain. denies numbness/tingling. NIHSS=2 for slurred speech and facial droop. ambulates with walker/gait belt and SBA. Takes meds whole. Renal diet.
== END 2016-09-01 11:50 | disposition disaster alternative care site (69) | DRG 64 ==
LOC: GICU 13:32
PROVIDERS: Hospitalist; ADMIT Family Medicine
DX: I63.9 Cerebral infarction, unspecified (principal); I33.0 Acute and subacute infective endocarditis; N18.4 Chronic kidney disease, stage 4 (severe); N17.9 Acute kidney failure, unspecified; E11.22 Type 2 diabetes mellitus with diabetic chronic kidney disease; I48.2 Chronic atrial fibrillation; I12.9 Hypertensive chronic kidney disease with stage 1 through stage 4 chronic kidney disease, or unspecified chronic kidney disease; G47.33 Obstructive sleep apnea (adult) (pediatric); I25.10 Atherosclerotic heart disease of native coronary artery without angina pectoris; Z95.1 Presence of aortocoronary bypass graft; R29.810 Facial weakness; R47.1 Dysarthria and anarthria; Z79.01 Long term (current) use of anticoagulants; Z79.4 Long term (current) use of insulin; Z99.81 Dependence on supplemental oxygen; Z87.891 Personal history of nicotine dependence; Z95.0 Presence of cardiac pacemaker; R29.703 NIHSS score 3; Z86.14 Personal history of Methicillin resistant Staphylococcus aureus infection
CPT/HCPCS: J0690; J7030; J7050

== ENCOUNTER → 2016-08-29 | Outpatient (CLI) | payer MEDICARE, BC | END | disposition disaster alternative care site (69) | LOC: GAMB 12:58 | DX: I63.9 Cerebral infarction, unspecified (principal); I48.92 Unspecified atrial flutter; R29.810 Facial weakness; R47.81 Slurred speech | CPT/HCPCS: A0425; A0426 ==